=== PATIENT | male | born 1930 | race African-American/Black ===

== ENCOUNTER 2016-11-07 11:26 | Inpatient (IN) | payer MEDICARE ==
[~2016-11-07] VITALS: Ht 165.1 cm; Wt 83.0 kg
--- NOTE | 2016-11-07 11:43 | Emergency Room Report ---
History of Present Illness General Chief Complaint: Dizziness Source: Patient, EMS Present Illness HPI Patient is an 85-year-old male brought in by EMS after increased dizziness. Patient had prior history of dementia. Patient recently been started on Donepezil. The patient reports having prior history of motion sickness. Patient states that he didn't come had dizzy. He had generalized body aches and nausea. This had occured multiple times in the past per patient. Allergies: Coded Allergies: PENICILLINS (Unverified Allergy, Unknown, 11/07/16) Patient History Past Medical History: see triage record Reviewed Nursing Documentation: PMH: Agreed, PSxH: Agreed Nursing Documentation-PMH Past Medical History: No History, Except For Hx Cancer: Yes - History of Colon Ca History Of Psychiatric Problem: Yes - Dementia Review of Systems All Other Systems: negative except mentioned in HPI Physical Exam Vital Signs Date Time Temp Pulse Resp B/P Pulse Ox O2 Delivery O2 Flow Rate FiO2 11/07/16 11:20 97.9 78 18 165/98 98 Room Air Sp02 EP Interpretation: reviewed, normal General Appearance: normal inspection, well appearing, no apparent distress, alert, GCS 15 Head: atraumatic ENT: normal ENT inspection, hearing grossly normal, normal voice Neck: normal inspection, full range of motion, supple, no bony tend Respiratory: normal inspection, lungs clear, normal breath sounds, no respiratory distress, no retraction, no wheezing Cardiovascular #1: regular rate, rhythm, no edema Gastrointestinal: normal inspection, normal bowel sounds, non tender, soft, no guarding, no hernia Genitourinary: no CVA tenderness Musculoskeletal: normal inspection, back normal, normal range of motion Neurologic: normal inspection, alert, oriented x3, responsive, shopper insights manager III-XII nml as tested, speech normal Psychiatric: normal inspection, judgement/insight normal, mood/affect normal Skin: normal inspection, normal color, no rash Medical Decision Making Diagnostic Impression: Primary Impression: Dizziness Additional Impressions: Urinary tract infection Leukopenia ER Course Patient presented for dizziness. Differential diagnosis included was not limited to CVA, vertebrobasilar insufficiency, myocardial infarction, benign positional vertigo, labyrinthitis, aspirin overdose among others. Patient was given oral meclizine. Because of complexity of patient's case laboratory testing and imaging studies were ordered.The patient was noted to have a slightly low white blood count. A urinalysis showed evidence of a urinary tract infection. Patient was noted to have some prior history of prostatic disease.The patient was given antibiotics. Patient was noted to have mildly elevated potassium level. I EKG showed normal sinus rhythm with a rate of 71 no acute changes consistent with hyperkalemia. Dr. Lucas was contacted for inpatient management Labs Test 11/07/16 11:53 11/07/16 12:41 White Blood Count 3.2 K/UL (4.8-10.8) Red Blood Count 4.99 M/UL (4.70-6.10) Hemoglobin 15.6 G/DL (14.2-18.0) Hematocrit 47.1 % (42.0-52.0) Mean Corpuscular Volume 94 FL (80-99) Mean Corpuscular Hemoglobin 31.3 PG (27.0-31.0) Mean Corpuscular Hemoglobin Concent 33.1 G/DL (32.0-36.0) Red Cell Distribution Width 12.8 % (11.6-14.8) Platelet Count 203 K/UL (150-450) Mean Platelet Volume 8.1 FL (6.5-10.1) Neutrophils (%) (Auto) % (45.0-75.0) Lymphocytes (%) (Auto) % (20.0-45.0) Monocytes (%) (Auto) % (1.0-10.0) Eosinophils (%) (Auto) % (0.0-3.0) Basophils (%) (Auto) % (0.0-2.0) Troponin I < 0.30 ng/mL (<=0.30) Urine Color Pale yellow Urine Appearance Clear Urine pH 7 (4.5-8.0) Urine Specific [place] 1.015 (1.005-1.035) Urine Protein 1+ (NEGATIVE) Urine Glucose (UA) Negative (NEGATIVE) Urine Ketones 2+ (NEGATIVE) Urine Occult Blood 1+ (NEGATIVE) Urine Nitrite Negative (NEGATIVE) Urine Bilirubin Negative (NEGATIVE) Urine Urobilinogen Normal MG/DL (0.0-1.0) Urine Leukocyte Esterase 1+ (NEGATIVE) Urine RBC 2-4 /HPF (0 - 0) Urine WBC 10-15 /HPF (0 - 0) Urine Squamous Epithelial Cells Occasional /LPF Urine Bacteria Few /HPF (NONE) EKG Diagnostic Results Rate: normal - 71 Rhythm: NSR ST Segments: no acute changes Last Vital Signs Date Time Temp Pulse Resp B/P Pulse Ox O2 Delivery O2 Flow Rate FiO2 11/07/16 11:20 97.9 78 18 165/98 98 Room Air Status: unchanged Disposition: ADMITTED INPATIENT Condition: Serious Referrals: NOT CHOSEN IPA/,REFERRING (PCP) Amando Powell November 07, 2016 11:43
[2016-11-07] MEDS ORDERED: Meclizine 25mg tab ORAL ONE (11:45)
[2016-11-07 12:20] LABS: MEAN CORPUSCULAR HEMOGLOBIN 31.3 PG (27.0-31.0); MEAN CORPUSCULAR HGB CONC 33.1 G/DL (32.0-36.0); MEAN CORPUSCULAR VOLUME 94 FL (80-99); MEAN PLATELET VOLUME 8.1 FL (6.5-10.1); PLATELET COUNT 203 K/UL (150-450); RED BLOOD COUNT 4.99 M/UL (4.70-6.10); RED CELL DISTRIBUTION WIDTH 12.8 % (11.6-14.8); WHITE BLOOD COUNT 3.2 K/UL (4.8-10.8)
[2016-11-07 12:34] VITALS: BP 162/75
[2016-11-07 12:48] LABS: TROPONIN I < 0.30 ng/mL (<=0.30)
[2016-11-07 13:01] LABS: APPEARANCE,URINE CLEAR; KETONES,URINE 2+ (NEGATIVE); LEUKOCYTE ESTERASE ,URINE 1+ (NEGATIVE); NITRITE,URINE NEGATIVE (NEGATIVE); PH,URINE 7 (4.5-8.0); PROTEIN,URINE 1+ (NEGATIVE); UROBILINOGEN,URINE NORMAL MG/DL (0.0-1.0)
[2016-11-07 13:11] LABS: BACTERIA,URINE FEW /HPF; SQUAMOUS EPITHELIAL CELL,UR OCCASIONAL /LPF (NONE/OCC)
[2016-11-07 13:23] LABS: ALANINE AMINOTRANSFERASE 21 U/L (3-41); ALBUMIN/GLOBULIN RATIO 1.6 (1.0-2.7); ANION GAP 14 (5-15); ASPARTATE AMINO TRANSFERASE 18 U/L (5-40); CALCIUM 10.3 mg/dL (8.6-10.2); CARBON DIOXIDE 28 mEQ/L (20-30); CHLORIDE 96 mEQ/L (98-107); HEMOLYSIS 5; SODIUM 138 mEQ/L (135-145); TOTAL PROTEIN 6.9 g/dL (6.6-8.7)
[2016-11-07] MEDS ORDERED: LEXAPRO10 MG ORAL (13:24)
[2016-11-07] MEDS ORDERED: DONEPEZIL HCL5 MG ORAL (13:24)
[2016-11-07 13:43] LABS: EOSINOPHILS % (MANUAL) 2 % (0-3); LYMPHOCYTES % (MANUAL) 18 % (20-45); NEUTROPHILS % (MANUAL) 69 % (45-75); TOTAL CELLS COUNTED 100
[2016-11-07 13:44] LABS: BAND NEUTROPHILS % (MANUAL) 0 % (0-8); BASOPHILS % (MANUAL) 0 % (0-2); PLATELET ESTIMATE ADEQUATE; PLATELET MORPHOLOGY NORMAL
[2016-11-07 14:58] VITALS: BP 165/78
[2016-11-07 16:03] VITALS: BP 171/89
[2016-11-07] MEDS ORDERED: Acetaminophen 500mg (ES) tab ORAL PRN (16:30)
[2016-11-07 17:00] VITALS: BP 152/88
[2016-11-07 20:00] VITALS: BP 154/82
[2016-11-07] MEDS: Heparin 5000 units/ml inj SUBQ SCH (20:33)
[2016-11-08] VITALS (7 sets, daily range): BP systolic 119–174; BP diastolic 62–93
[2016-11-08 06:16] LABS: MEAN CORPUSCULAR HGB CONC 32.9 G/DL (32.0-36.0); MEAN CORPUSCULAR VOLUME 94 FL (80-99); MEAN PLATELET VOLUME 8.5 FL (6.5-10.1); PLATELET COUNT 189 K/UL (150-450); RED BLOOD COUNT 4.51 M/UL (4.70-6.10); RED CELL DISTRIBUTION WIDTH 12.6 % (11.6-14.8); WHITE BLOOD COUNT 3.4 K/UL (4.8-10.8)
[2016-11-08 06:31] LABS: ANION GAP 13 (5-15); CALCIUM 9.5 mg/dL (8.6-10.2); CARBON DIOXIDE 26 mEQ/L (20-30); CHLORIDE 98 mEQ/L (98-107); HEMOLYSIS 2; POTASSIUM 4.5 mEQ/L (3.4-4.9); SODIUM 137 mEQ/L (135-145)
[2016-11-08] MEDS: Heparin 5000 units/ml inj SUBQ SCH ×2 (09:18→20:39)
--- NOTE | 2016-11-08 12:30 | History and Physical Report ---
DATE OF ADMISSION: 11/07/2016 CHIEF COMPLAINT: Dizziness. HISTORY OF PRESENTING ILLNESS: This is an 85-year-old male who lives with a grandson in an apartment. He was brought in by the paramedics after complaints of dizziness. The patient has history of advanced dementia. He is a very poor historian. The patient cannot be more specific. PAST MEDICAL HISTORY: Dementia. MEDICATIONS: Aricept, Lexapro, . MEDICAL PROBLEMS: Hypertension. ALLERGIES: No known drug allergies. FAMILY HISTORY: The patient is confused. SOCIAL HISTORY: The patient is confused. REVIEW OF SYSTEMS: The patient is confused. PHYSICAL EXAMINATION: GENERAL: This is an elderly man, who is in no acute distress. VITAL SIGNS: His blood pressure is fluctuating between 171/89 to 133/80, heart rate fluctuating between 60 and 90, respirations 23, and temperature 98.8. HEENT: The head is normocephalic and atraumatic. Pupils are equal, round, and reactive to light and accommodation consensually. NECK: Supple. Trachea midline. There was no lymphadenopathy or thyromegaly. LUNGS: Clear to auscultation and percussion. HEART: Regular rhythm without rubs, murmurs, or gallops. ABDOMEN: Soft. Bowel sounds are active. EXTREMITIES: No clubbing, cyanosis, or edema. NEUROLOGIC: He is alert, but confused. There are no gross focal findings. LABORATORY AND ANCILLARY DATA: CBC within normal limits. Serum chemistry within normal limits. Urinalysis, 10-15 white blood cells, otherwise within normal limits. Urine culture results pending. ASSESSMENT: Dizziness, nonspecific. PLAN: 1. Neurology consult. 2. Physical therapy evaluation. 3. Consider placement if the patient's grandson cannot handle the patient. Carolyn Miguel M.D. DR: Amy JOB#: [id number] CC:
--- NOTE | 2016-11-08 13:52 | Neurology Progress Note ---
Objective Physical Exam Last Vital Signs Date Time Temp Pulse Resp B/P Pulse Ox O2 Delivery O2 Flow Rate FiO2 11/08/16 12:28 97.7 71 21 119/62 99 Room Air Laboratory Tests Test 11/08/16 05:45 White Blood Count 3.4 K/UL (4.8-10.8) L Red Blood Count 4.51 M/UL (4.70-6.10) L Hemoglobin 14.0 G/DL (14.2-18.0) L Hematocrit 42.4 % (42.0-52.0) Mean Corpuscular Volume 94 FL (80-99) Mean Corpuscular Hemoglobin 31.0 PG (27.0-31.0) Mean Corpuscular Hemoglobin Concent 32.9 G/DL (32.0-36.0) Red Cell Distribution Width 12.6 % (11.6-14.8) Platelet Count 189 K/UL (150-450) Mean Platelet Volume 8.5 FL (6.5-10.1) Neutrophils (%) (Auto) % (45.0-75.0) Lymphocytes (%) (Auto) % (20.0-45.0) Monocytes (%) (Auto) % (1.0-10.0) Eosinophils (%) (Auto) % (0.0-3.0) Basophils (%) (Auto) % (0.0-2.0) Sodium Level 137 mEQ/L (135-145) Potassium Level 4.5 mEQ/L (3.4-4.9) Chloride Level 98 mEQ/L (98-107) Carbon Dioxide Level 26 mEQ/L (20-30) Anion Gap 13 (5-15) Blood Urea Nitrogen 12 mg/dL (7-23) Creatinine 1.0 mg/dL (0.7-1.2) Estimat Glomerular Filtration Rate mL/min (>60) Glucose Level 88 mg/dL (74-106) Calcium Level 9.5 mg/dL (8.6-10.2) Impression/Recommendations Problems: (1) chronic labirintitis, exacerbation (2) Dementia arising in the senium and presenium (3) UTI (urinary tract infection) Status: unchanged Recommendations #[id number] FABY CAMERON November 08, 2016 13:52
[2016-11-08] MEDS ORDERED: Meclizine 25mg tab ORAL PRN (14:15)
--- NOTE | 2016-11-08 17:30 | Consultation ---
DATE OF CONSULTATION: 11/08/2016 NEUROLOGICAL CONSULTATION REQUESTING PHYSICIAN: Carolyn Bhatia M.D. HISTORY OF PRESENT ILLNESS: The patient is an 85-year-old man who is seen in neurological consultation to evaluate recurrent dizzy spells, tinnitus, and gait instability. According to the patient as well as from his brother who was present during this examination, known that for some time he has some hearing loss, tinnitus in his ears, which interfere with his sleep, but also has a chronic intermittent episodes of vertigo. He had some more pronounced symptomatology lately and family become concerned of the cause of this condition. The patient also indicated he had a fight with his , as he was refusing to the hospital. The patient was brought to the hospital. Paramedics were called to the scene, as the patient was complaining being sick and dizzy, but denies any other associated symptomatology. His vital signs were stable, although blood pressure was 150/100, heart rate of 88 and respirations 18. He was brought to emergency room complaining of generalized body aches and nausea. His initial workup included laboratory studies with normal CBC. Chemistry panel unremarkable except potassium 5.0, chloride 96, and calcium 10.3, and repeat study was 9.5. Urinalysis 10-15 WBCs and 1+ leukocyte esterase. Since admission till present, there were no further paroxysmal activities, as the patient was described as confused. PAST MEDICAL HISTORY: The patient has a history of prostate CA and colon CA and history of Alzheimer disease last few years ago progressively worsened. MEDICATIONS: His treatment include Aricept 5 mg daily and Lexapro 10 mg daily. Currently, he is maintained on amlodipine, Tylenol and subcutaneous heparin. ALLERGIES: Penicillin. SOCIAL HISTORY: Lives at home with his and family members. No alcohol. No drug abuse. Nonsmoker. REVIEW OF SYMPTOMS: The patient's 14-point review of symptoms was obtained and this included intermittent vertigo, dizziness, gait instability, tinnitus, hearing loss, generalized aches and pains, but no chest pain. No palpitations. No respiratory problems. Denies abdominal pain or discomfort. No urine or bowel incontinence. Denies headaches. PHYSICAL EXAMINATION: GENERAL: The patient is well developed and well nourished, elderly man in acute distress, sitting in a chair, talking to his brother. VITAL SIGNS: His vital signs now stable. Blood pressure is stable with blood pressure of 119/62 and temperature 97.7 degrees. HEENT: Head, normocephalic. No evidence of trauma. Eyes, ears, and throat are clear. NECK: Supple. No meningeal signs. MUSCULOSKELETAL: Unremarkable. No deformities. Peripheral pulses 1+ symmetric. MENTAL STATUS: The patient is alert and oriented to his name and age. He was hesitating, but he was able to give his address. He is unable to provide with any history. He is not sure why he is in the hospital. Responses are slow. CRANIAL NERVE II: Pupils, both responding to light and accommodation. Extraocular movement intact. No nystagmus. CRANIAL NERVE V: Normal corneal responses. CRANIAL NERVE VII: No facial asymmetry. CRANIAL NERVE VIII: Decreased hearing. No evidence of vertigo with head movement. CRANIAL NERVES IX THROUGH XII: Within normal limits. MOTOR EXAMINATION: Normal muscle tone. Strength 5/5 in all extremities. No involuntary movement. Deep reflexes 1+ symmetric with downgoing toes on both sides. SENSORY EXAM: Normal in all modalities. Gait, somewhat wobbly, unsteady, using cane. IMPRESSION: 1. Chronic labyrinthitis with recurrent vertigo. 2. Tinnitus, hearing loss. 3. Senile dementia. 4. History of colon and prostate carcinoma. 5. Benign hypertension. RECOMMENDATION: Because of intermittent vertigo, hearing loss and tinnitus not clear, studies MRI of the inner auditory canals would be helpful to rule out gross lesion. The patient to start on aspirin 81 mg, meclizine 12.5 mg t.i.d. p.r.n. Continue with the current treatment. Thank you for allowing me to see this interesting patient in neurological consultation. Benajmin Coffman M.D. DR: ZURDO JOB#: [id number] CC:
[2016-11-08] MEDS ORDERED: 1/2 NS 1000ml IV ONE (17:40)
--- NOTE | 2016-11-08 19:15 | Consultation ---
DATE OF CONSULTATION: 11/08/2016 CONSULTING PHYSICIAN: Marquis Hernandez M.D. HISTORY OF PRESENT ILLNESS: This is an 85-year-old male who has a history of advanced dementia, who is living with the family, has a history of multiple UTIs in the past, who has been admitted to the hospital due to altered mental status. During evaluation, the patient was unable to provide any history due to cognitive impairment. He presents with waxing and waning of consciousness. The patient has memory, concentration, and attention. PAST PSYCHIATRIC HISTORY: Diagnosed with depression in the past as well as dementia, has been on Lexapro and Aricept. Currently, he is not on Lexapro in the hospital. PAST MEDICAL HISTORY: Hypertension. ALLERGIES: No known drug allergies. SUBSTANCE ABUSE HISTORY: No history of illicit drug use or alcohol. MENTAL STATUS EXAMINATION: The patient is alert during evaluation. Presents with waxing and waning consciousness. Mood is dysphoric. Affect is blunted, congruent with mood. Thought process, there is a paucity of thought content due to confusion. Memory is impaired. Insight and judgment impaired. ASSESSMENT: AXIS I: 1. Dementia. 2. Major depressive disorder. AXIS II: Deferred. AXIS III: As above. AXIS IV: Low. AXIS V: Global assessment of functioning is 20. PLAN: 1. We will start the patient on Lexapro 10 mg in the morning. 2. We will continue to follow and readjust the medications. Marquis Hernandez M.D. DR: LOIS JOB#: [id number] CC:
[2016-11-09] VITALS (7 sets, daily range): BP systolic 128–164; BP diastolic 72–92
--- NOTE | 2016-11-09 07:53 | Cardiology Report ---
APPROVED REPORT EKG Measurement Heart [id number] Sinus rhythm with sinus arrhythmia with 1st degree AV block Incomplete right bundle branch block Left anterior fascicular block Possible Lateral infarct, age undetermined Abnormal ECG
[2016-11-09] MEDS: Heparin 5000 units/ml inj SUBQ SCH ×2 (08:16→21:00)
--- NOTE | 2016-11-09 10:05 | General Progress Note ---
Assessment/Plan Assessment/Plan U C+S Strep Sp. Strep UTI - IV Abx Subjective Allergies: Coded Allergies: PENICILLINS (Unverified Allergy, Unknown, 11/07/16) Subjective More confused Objective Last 24 Hour Vital Signs Date Time Temp Pulse Resp B/P Pulse Ox O2 Delivery O2 Flow Rate FiO2 11/09/16 08:14 61 164/91 11/09/16 08:13 96.8 61 20 164/91 94 Room Air 11/09/16 08:00 96.8 61 20 164/91 94 Room Air 11/09/16 04:00 97.9 67 18 150/91 95 Room Air 11/08/16 23:48 98.4 64 19 159/88 97 Room Air 11/08/16 19:52 98.1 70 19 139/93 96 Room Air 11/08/16 16:23 97.7 81 24 137/75 99 Room Air 11/08/16 12:28 97.7 71 21 119/62 99 Room Air Intake and Output 11/08/16 11/09/16 19:00 07:00 Intake Total 960 ml Balance 960 ml Intake Oral 960 ml # Voids 2 1 Height (Feet): 5 Height (Inches): 11.00 Weight (Pounds): 184 Objective CV RR Lungs CTa Abd SNT . BS + E No CCE HOANG PETERSON November 09, 2016 10:05
--- NOTE | 2016-11-09 10:14 | General Progress Note ---
Assessment/Plan Assessment/Plan U C+S Strep Sp. Strep UTI - IV Abx Recurrent UTI ? etiology check renal US. Subjective Allergies: Coded Allergies: PENICILLINS (Unverified Allergy, Unknown, 11/07/16) Subjective More confused. Stating he had another UTI a week ago and was treated. Objective Last 24 Hour Vital Signs Date Time Temp Pulse Resp B/P Pulse Ox O2 Delivery O2 Flow Rate FiO2 11/09/16 08:14 61 164/91 11/09/16 08:13 96.8 61 20 164/91 94 Room Air 11/09/16 08:00 96.8 61 20 164/91 94 Room Air 11/09/16 04:00 97.9 67 18 150/91 95 Room Air 11/08/16 23:48 98.4 64 19 159/88 97 Room Air 11/08/16 19:52 98.1 70 19 139/93 96 Room Air 11/08/16 16:23 97.7 81 24 137/75 99 Room Air 11/08/16 12:28 97.7 71 21 119/62 99 Room Air Intake and Output 11/08/16 11/09/16 19:00 07:00 Intake Total 960 ml Balance 960 ml Intake Oral 960 ml # Voids 2 1 Height (Feet): 5 Height (Inches): 11.00 Weight (Pounds): 184 Objective CV RR Lungs CTa Abd SNT . BS + E No CCE HOANG PETERSON November 09, 2016 10:14
[2016-11-09] MEDS: Levofloxacin 500mg tab ORAL SCH (10:39)
[2016-11-09] MEDS ORDERED: LORazepam Inj 2mg/ml 1ml IV PRN (12:00)
--- NOTE | 2016-11-09 12:33 | Diagnostic Imaging Report ---
APPROVED REPORT CPT Code: 69129 Present Symptoms Lower Extremity Pain: Bilateral BILATERAL: Imaging reveals a patent deep venous system bilaterally. There is no evidence of thrombus within the femoral, popliteal or tibial segments. The greater saphenous veins are also within normal limits. Doppler indicates normal spontaneous flow within these segments.
--- NOTE | 2016-11-09 13:39 | Neurology Progress Note ---
Interim History Interim History ROS Limited/Unobtainable: Yes Complaints: vertigo for years Events: stable Objective Physical Exam Last Vital Signs Date Time Temp Pulse Resp B/P Pulse Ox O2 Delivery O2 Flow Rate FiO2 11/09/16 12:00 98.8 65 20 128/72 97 Room Air General: well developed, well nourished, no acute distress Head: normocophalic, atraumatic Neck: no rigidity Neurologic Exam Mental Status: awake, alert, other - confused forgtful Speech: normal speech, no dysarthia Language: normal language, no aphasia Cranial Nerve II: fundus normal, visual kraft, no papilledema Cranial Nerves III, IV, : PERRLA, EOMI, pupils Cranial Nerve V: normal facial sensations, temporales function normal, masseters function normal, pterygoids function normal Cranial Nerve VII: no facial asymmetry, normal facial expressions Cranial Nerve VIII: normal hearing, no nystagmus, other - poor hearing Cranial Nerve IX: normal palate elevation, gag response Cranial Nerve X: no voice hoarseness Cranial Nerve XI: SCM symmetric, trapezii function normal Cranial Nerve XII: tongue midline, no tongue atrophy/fasciculations Motor System: normal muscle tone, no involuntary movement Sensory: normal pinprick Coordination: normal finger to nose bilaterally Deep Tendon Reflexes: 0 ankle (L), 0 ankle (R), 0 bicep (L), 0 bicep (R), 0 brachioradialis (L), 0 brachioradialis (R), 0 knee (L), 0 knee (R), 0 tricep (L) , 0 tricep (R) Reflexes: mute plantar (L), mute plantar (R) Impression/Recommendations Problems: (1) chronic labirintitis, exacerbation (2) Dementia arising in the senium and presenium (3) UTI (urinary tract infection) Status: stable, unchanged Recommendations #[id number] refused MRI IAC trial janice 12.5 FABY Kaufman November 09, 2016 13:39
--- NOTE | 2016-11-09 14:15 | Diagnostic Imaging Report ---
Indication: Abnormal renal function tests Technique: Grayscale and duplex images of the kidneys, retroperitoneum, and bladder were obtained. Comparison:None Findings: Right kidney measures 9.7 cm in length. Left kidney measures 9.1 cm in length. Both kidneys demonstrate normal echogenicity. No hydronephrosis. Left kidney demonstrates a 1 cm upper pole cyst. Normal inferior vena cava. Bladder is empty. Bladder wall is equivocally thickened. Calcification is seen within the spleen. Between the left kidney and the spleen, there is a 1.5 cm hypoechoic structure that demonstrates distal acoustic enhancement Impression: Negative for hydronephrosis 1.5 cm complex possibly cystic structure between left kidney and the spleen. Further evaluation with contrast CT recommended if clinically indicated Nondistended bladder. Possible bladder wall thickening, could be an artifact of under distention, but wall thickening secondary to cystitis or chronic outlet obstruction not excludable Calcifications within the spleen, probably old granulomatous disease Incidental finding of left renal cyst.
[2016-11-10] VITALS (7 sets, daily range): BP systolic 128–142; BP diastolic 78–98
[2016-11-10 06:23] LABS: EOSINOPHILS % (AUTO) 3.2 % (0.0-3.0); LYMPHOCYTES % (AUTO) 27.9 % (20.0-45.0); MEAN CORPUSCULAR HEMOGLOBIN 31.2 PG (27.0-31.0); MEAN CORPUSCULAR HGB CONC 33.3 G/DL (32.0-36.0); MEAN CORPUSCULAR VOLUME 94 FL (80-99); MEAN PLATELET VOLUME 8.6 FL (6.5-10.1); MONOCYTES % (AUTO) 13.2 % (1.0-10.0); NEUTROPHILS % (AUTO) 53.7 % (45.0-75.0); PLATELET COUNT 203 K/UL (150-450); RED BLOOD COUNT 4.71 M/UL (4.70-6.10); RED CELL DISTRIBUTION WIDTH 12.9 % (11.6-14.8); WHITE BLOOD COUNT 3.5 K/UL (4.8-10.8)
[2016-11-10 08:37] LABS: ANION GAP 16 (5-15); CALCIUM 9.6 mg/dL (8.6-10.2); CARBON DIOXIDE 23 mEQ/L (20-30); CHLORIDE 99 mEQ/L (98-107); HEMOLYSIS 9; POTASSIUM 4.4 mEQ/L (3.4-4.9); SODIUM 138 mEQ/L (135-145)
[2016-11-10 08:44] LABS: PSA TOTAL 0.8 ng/mL (< 4.5)
[2016-11-10] MEDS: Levofloxacin 500mg tab ORAL SCH (08:55)
[2016-11-10] MEDS: Heparin 5000 units/ml inj SUBQ SCH ×2 (09:00→20:35)
--- NOTE | 2016-11-10 10:53 | General Progress Note ---
Assessment/Plan Assessment/Plan U c+s Enterococci (R/O VRE!!!!) R/O VRE Pyelo !!! Recurrent UTI ? Renal US "Complex Cyst" may represent CA. MRI ordered. May be the reason for recurrent (and possible VRE pyelonephritis ) with AMS! ID Consult requested. Subjective Allergies: Coded Allergies: PENICILLINS (Unverified Allergy, Unknown, 11/07/16) Subjective Confused. Stating he had another UTI a week ago and was treated. Objective Last 24 Hour Vital Signs Date Time Temp Pulse Resp B/P Pulse Ox O2 Delivery O2 Flow Rate FiO2 11/10/16 08:55 78 142/98 11/10/16 08:04 98.1 78 21 142/98 99 Room Air 11/10/16 04:00 98.1 86 20 142/79 97 Room Air 11/10/16 00:00 97.7 80 20 142/86 97 Room Air 11/09/16 20:00 98.8 71 20 152/92 93 Room Air 11/09/16 16:00 98.2 68 20 149/89 97 Room Air 11/09/16 12:00 98.8 65 20 128/72 97 Room Air Intake and Output 11/09/16 11/10/16 19:00 07:00 Intake Total 200 ml Balance 200 ml Intake Oral 200 ml # Voids 4 2 Laboratory Tests 11/10/16 05:30: White Blood Count 3.5L, Red Blood Count 4.71, Hemoglobin 14.7, Hematocrit 44.2, Mean Corpuscular Volume 94, Mean Corpuscular Hemoglobin 31.2H, Mean Corpuscular Hemoglobin Concent 33.3, Red Cell Distribution Width 12.9, Platelet Count 203, Mean Platelet Volume 8.6, Neutrophils (%) (Auto) 53.7, Lymphocytes (%) (Auto) 27.9, Monocytes (%) (Auto) 13.2H, Eosinophils (%) (Auto) 3.2H, Basophils (%) ( Auto) 2.0, Sodium Level 138, Potassium Level 4.4, Chloride Level 99, Carbon Dioxide Level 23, Anion Gap 16H, Blood Urea Nitrogen 13, Creatinine 1.0, Estimat Glomerular Filtration Rate , Glucose Level 98, Calcium Level 9.6, Magnesium Level 2.0, Prostate Specific Antigen 0.8 Height (Feet): 5 Height (Inches): 11.00 Weight (Pounds): 184 Objective CV RR Lungs CTa Abd SNT . BS + E No CCE HOANG PETERSON November 10, 2016 10:53
--- NOTE | 2016-11-10 11:42 | Infectious Diseases Prog Note ---
Assessment/Plan Assessment/Plan Full consult to follow: A) 1) enterococcus uti, sensitive to vancomycin 2) allergies - pcn 3) pmh noted 4) mar noted P) 1) vancomycin 2) watch cr 3) continue other treatment per primary 4) thank you Subjective Allergies: Coded Allergies: PENICILLINS (Unverified Allergy, Unknown, 11/07/16) Objective Vital Signs Last 24 Hour Vital Signs Date Time Temp Pulse Resp B/P Pulse Ox O2 Delivery O2 Flow Rate FiO2 11/10/16 11:35 97.7 91 22 135/87 96 Room Air 11/10/16 08:55 78 142/98 11/10/16 08:04 98.1 78 21 142/98 99 Room Air 11/10/16 04:00 98.1 86 20 142/79 97 Room Air 11/10/16 00:00 97.7 80 20 142/86 97 Room Air 11/09/16 20:00 98.8 71 20 152/92 93 Room Air 11/09/16 16:00 98.2 68 20 149/89 97 Room Air 11/09/16 12:00 98.8 65 20 128/72 97 Room Air Height (Feet): 5 Height (Inches): 11.00 Weight (Pounds): 184 Microbiology Date/Time Source Procedure Growth Status 11/07/16 12:41 Urine,Clean Catch Urine Culture - Final Enterococcus Faecalis Complete Laboratory Tests Test 11/10/16 05:30 White Blood Count 3.5 K/UL (4.8-10.8) L Red Blood Count 4.71 M/UL (4.70-6.10) Hemoglobin 14.7 G/DL (14.2-18.0) Hematocrit 44.2 % (42.0-52.0) Mean Corpuscular Volume 94 FL (80-99) Mean Corpuscular Hemoglobin 31.2 PG (27.0-31.0) H Mean Corpuscular Hemoglobin Concent 33.3 G/DL (32.0-36.0) Red Cell Distribution Width 12.9 % (11.6-14.8) Platelet Count 203 K/UL (150-450) Mean Platelet Volume 8.6 FL (6.5-10.1) Neutrophils (%) (Auto) 53.7 % (45.0-75.0) Lymphocytes (%) (Auto) 27.9 % (20.0-45.0) Monocytes (%) (Auto) 13.2 % (1.0-10.0) H Eosinophils (%) (Auto) 3.2 % (0.0-3.0) H Basophils (%) (Auto) 2.0 % (0.0-2.0) Sodium Level 138 mEQ/L (135-145) Potassium Level 4.4 mEQ/L (3.4-4.9) Chloride Level 99 mEQ/L (98-107) Carbon Dioxide Level 23 mEQ/L (20-30) Anion Gap 16 (5-15) H Blood Urea Nitrogen 13 mg/dL (7-23) Creatinine 1.0 mg/dL (0.7-1.2) Estimat Glomerular Filtration Rate mL/min (>60) Glucose Level 98 mg/dL (74-106) Calcium Level 9.6 mg/dL (8.6-10.2) Magnesium Level 2.0 mg/dL (1.7-2.5) Prostate Specific Antigen 0.8 ng/mL (< 4.5) Current Medications Medications (Trade) Dose Ordered Sig/Alan Route PRN Reason Start Time Stop Time Status Last Admin Dose Admin Acetaminophen (Tylenol) 500 mg Q6H PRN ORAL Mild Pain/Temp > 100.5 11/07/16 16:30 12/07/16 16:29 11/07/16 23:17 Amlodipine Besylate (Norvasc) 10 mg DAILY ORAL 11/10/16 09:00 12/10/16 08:59 11/10/16 08:55 Escitalopram Oxalate (Lexapro) 10 mg DAILY ORAL 11/09/16 09:00 12/09/16 08:59 11/10/16 08:55 Heparin Sodium (Porcine) (Heparin 5000 units/ml) 5,000 units EVERY 12 HOURS SUBQ 11/07/16 21:00 12/07/16 20:59 11/10/16 09:00 Levofloxacin (Levaquin) 500 mg DAILY ORAL 11/09/16 10:15 11/16/16 10:14 11/10/16 08:55 DOLLY ADAM November 10, 2016 11:42
[2016-11-10] MEDS: Vancomycin 1.5 GM in D5W 325 ML IVPB SCH (15:06)
--- NOTE | 2016-11-10 22:15 | Progress Note ---
SUBJECTIVE: The patient is somewhat confused, however, the mental status is improving since previous encounter. He is awake. No anxiety or agitation. Still endorses mild waxing and waning consciousness and impairment of cognition. MENTAL STATUS EXAMINATION: The patient alert and oriented times self and is having difficulty with memory. Mood is neutral. Affect is constricted, congruent with mood. Thought process, there is a paucity of thought content. Thought content, no suicidal or homicidal ideations. No delusions. Cognition is impaired. ASSESSMENT: 1. Urinary tract infection. 2. Delirium, improving. 3. Dementia. PLAN: The patient will be continued on Lexapro 10 mg in the morning before he came in. We will continue follow and readjust the medications. Marquis Hernandez M.D. DR: GAIL JOB#: [id number] CC:
[2016-11-11 04:00] VITALS: BP 141/97
[2016-11-11 05:42] LABS: BASOPHILS % (AUTO) 2.3 % (0.0-2.0); MEAN CORPUSCULAR HEMOGLOBIN 31.4 PG (27.0-31.0); MEAN CORPUSCULAR HGB CONC 33.2 G/DL (32.0-36.0); MEAN CORPUSCULAR VOLUME 95 FL (80-99); MEAN PLATELET VOLUME 8.4 FL (6.5-10.1); MONOCYTES % (AUTO) 10.5 % (1.0-10.0); NEUTROPHILS % (AUTO) 65.2 % (45.0-75.0); PLATELET COUNT 185 K/UL (150-450); RED BLOOD COUNT 4.63 M/UL (4.70-6.10); WHITE BLOOD COUNT 4.4 K/UL (4.8-10.8)
[2016-11-11 06:17] LABS: ANION GAP 14 (5-15); CALCIUM 9.7 mg/dL (8.6-10.2); CARBON DIOXIDE 24 mEQ/L (20-30); CHLORIDE 98 mEQ/L (98-107); HEMOLYSIS 2; POTASSIUM 4.2 mEQ/L (3.4-4.9); SODIUM 136 mEQ/L (135-145)
[2016-11-11 08:19] VITALS: BP 135/69
[2016-11-11] MEDS: Heparin 5000 units/ml inj SUBQ SCH ×2 (09:15→20:51)
--- NOTE | 2016-11-11 10:21 | General Progress Note ---
Assessment/Plan Assessment/Plan U c+s Enterococci (R/O VRE!!!!) R/O VRE Pyelo !!! Recurrent UTI ? Renal US "Complex Cyst" may represent CA. MRI ordered. May be the reason for recurrent (and possible VRE pyelonephritis ) with AMS! ID Consult requested. DW pt's . Pt. accepted @ [facility] Dr[facility]. Awaiting CT Scan of Abdomen with Contrast. Subjective Allergies: Coded Allergies: PENICILLINS (Unverified Allergy, Unknown, 11/07/16) Subjective Confused. Stating he had another UTI a week ago and was treated. Objective Last 24 Hour Vital Signs Date Time Temp Pulse Resp B/P Pulse Ox O2 Delivery O2 Flow Rate FiO2 11/11/16 09:00 65 135/69 11/11/16 08:19 97.0 65 15 135/69 97 Room Air 11/11/16 04:00 97.6 64 18 141/97 97 Room Air 11/10/16 21:20 98.4 82 19 140/89 96 Room Air 11/10/16 20:00 98.4 82 19 140/89 96 Room Air 11/10/16 15:35 98.2 70 21 128/78 99 Room Air 11/10/16 11:35 97.7 91 22 135/87 96 Room Air Intake and Output 11/10/16 11/11/16 19:00 07:00 Intake Total 720 ml Output Total 600 ml 500 ml Balance 120 ml -500 ml Intake Oral 720 ml Output Urine Total 600 ml 500 ml # Voids 4 2 Laboratory Tests 11/11/16 05:10: White Blood Count 4.4L, Red Blood Count 4.63L, Hemoglobin 14.5, Hematocrit 43.8 , Mean Corpuscular Volume 95, Mean Corpuscular Hemoglobin 31.4H, Mean Corpuscular Hemoglobin Concent 33.2, Red Cell Distribution Width 13.0, Platelet Count 185, Mean Platelet Volume 8.4, Neutrophils (%) (Auto) 65.2, Lymphocytes (% ) (Auto) 20.0, Monocytes (%) (Auto) 10.5H, Eosinophils (%) (Auto) 2.0, Basophils (%) (Auto) 2.3H, Sodium Level 136, Potassium Level 4.2, Chloride Level 98, Carbon Dioxide Level 24, Anion Gap 14, Blood Urea Nitrogen 14, Creatinine 1.0, Estimat Glomerular Filtration Rate , Glucose Level 100, Calcium Level 9.7 Height (Feet): 5 Height (Inches): 11.00 Weight (Pounds): 184 Objective CV RR Lungs CTa Abd SNT . BS + E No CCE HOANG PETERSON Nov 11, 2016 10:21
[2016-11-11 11:44] VITALS: BP 155/67
[2016-11-11] MEDS: Vancomycin 1.5 GM in D5W 325 ML IVPB SCH (14:05)
--- NOTE | 2016-11-11 14:52 | Diagnostic Imaging Report ---
Clinical Indication: Pyelonephritis. Recurrent urinary tract infections. Abnormal perirenal lesion on recent ultrasound Technique: Patient given oral contrast. IV administration nonionic contrast. Multiphasic spiral acquisitions obtained through the abdomen and pelvis. Multiplanar reconstructions were generated. Total dose length product 2529 mGycm. CTDIvol(s) 12, 145, 17, 18, 18 mGy. Dose reduction achieved using automated exposure control Comparison: Reference made to renal ultrasound dated 11/09/2016 Findings: In the upper pole left kidney, there is a calcification which measures 13 x 7 mm. There may be one or more smaller adjacent calcifications. A punctate 2 mm calcification is seen in the lower pole of the left kidney. A calculus is seen in the right upper pole collecting system, filling the calyces and adjacent infundibula, measuring 17 x 10 x 3 mm. No other definite renal calculi are evident. This no evidence of ureteral calculi. The renal collecting systems and ureters are unremarkable. There is small amount of perinephric fluid on the left. There are subcentimeter low-attenuation lesions in the left kidney which are too small to characterize. No solid renal mass. No focal abnormality on the right. There are no findings to suggest a fistula between the GI tract and the urinary tract No mass or nodule or cyst is seen to account for the left juxtarenal nodular abnormality demonstrated on recent ultrasound. A fluid filled colonic diverticulum and the pancreatic tail are seen in the area, so either these could account for the abnormality visualized sonographically. There is a 5 mm soft tissue attenuation lesion located anterolateral to the lower pole of the spleen, likely representing a tiny accessory splenule, but this is farther from the kidney than was the abnormality described on recent ultrasound. On multiple sequences, there is suggestion of a 3 cm mass protruding into the duodenal lumen. There is also a small associated lipoma at the periphery of this. This is contiguous with and may be coming off of the pancreas. There is a large duodenal diverticulum coming off of the fourth portion of the duodenum. The liver demonstrates a subcentimeter low-attenuation lesion in segment 8 adjacent to the gallbladder fossa which is too small to characterize. The gallbladder, bile ducts, are unremarkable. The spleen demonstrates a small calcification in the lower pole. The bilateral adrenals are unremarkable. No mesenteric or retroperitoneal mass or adenopathy. No pelvic mass or adenopathy. Slightly prominent prostate. There is suggestion of a TURP defect. There are numerous colonic diverticula. There is no evidence of diverticulitis. There is evidence of ascending colectomy, with surgical anastomotic staple lines seen at the hepatic flexure. No small bowel distention. Contrast is seen throughout the entirety of the small bowel. No small bowel wall thickening. No free or loculated intraperitoneal air or fluid is demonstrated. The distal esophagus and stomach are unremarkable. The included lung bases demonstrate mild bibasilar scarring and minimal bronchiectasis. The bones demonstrate mild degenerative spondylosis changes. Impression: Multiple sequences demonstrate possible 3 cm mass protruding into the duodenal lumen. This could just represent extrinsic impression by a prominent pancreatic head. However, if real, this could represent an intrinsic duodenal mucosal tumor versus an extrinsic pancreatic head mass. Consider endoscopy for further evaluation if clinically indicated. Note that at the periphery of this apparent lesion, there is a 9 mm lipoma protruding into the duodenal lumen. 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 That finding was either artifactual or represented a normal anatomic structure Trace left perinephric fluid, nonspecific Subcentimeter low-attenuation left renal lesions, too small to characterize, most likely benign simple cortical cysts. No further followup necessary Large duodenal diverticulum incidentally noted Subcentimeter segment 8 liver low-attenuation lesion, distal to characterize, most likely benign simple cortical cyst or bile hamartomas. No further followup necessary Colonic diverticulosis Other findings as noted, including evidence of prior TURP, evidence of prior ascending colectomy, mild bilateral basilar pulmonary parenchymal scarring, minimal bronchiectasis, old splenic granulomatous disease, probable small accessory splenule and mild degenerative spondylosis changes. The CT scanner at [facility] is accredited by the [employer] and the scans are performed using protocols designed to limit radiation exposure to as low as reasonably achievable to attain images of sufficient resolution adequate for diagnostic evaluation.
--- NOTE | 2016-11-11 14:59 | Diagnostic Imaging Report ---
Indication: 85-year-old male inpatient with tinnitus, dizziness, unsteady gait, possible inner ear pathology Technique: Sagittal T1 FLAIR, axial diffusion weighted images of the brain. Axial and coronal thin slice T1 fast spin-echo pre-and post IV gadolinium injection, axial and coronal T2 fast spin echo,, axial 3-D fiesta images of the internal auditory canals Comparison: None Findings: No abnormal foci of restricted diffusion are seen on the diffusion-weighted images. The sagittal T1 weighted images of the brain demonstrate diffuse cerebral volume loss. Somewhat prominent but otherwise unremarkable internal auditory canals are demonstrated. No evidence of cerebellopontine angle mass. No abnormal contrast enhancing lesion. The inner ear structures are grossly unremarkable. As mentioned earlier, there is age-related enlargement of the ventricles and extra-axial CSF spaces. There is nonspecific increased white matter T1 signal within the coco and lower midbrain. There is incidentally noted sphenoid, ethmoid, and maxillary sinus disease. The orbits are unremarkable. No abnormal contrast enhancing lesions seen elsewhere. Impression: No significant abnormality of the internal auditory canal or inner ear demonstrated. There is age-related cerebral volume loss and chronic deep white matter ischemic change. Incidentally noted sinus disease
[2016-11-11 15:03] VITALS: BP 116/57
--- NOTE | 2016-11-11 16:05 | Infectious Diseases Prog Note ---
Assessment/Plan Assessment/Plan Full consult to follow: A) 1) enterococcus uti, sensitive to vancomycin 2) allergies - pcn 3) pmh noted 4) mar noted P) 1) vancomycin 2) watch cr 3) continue other treatment per primary 4) d/w Dr. Bullard Subjective Allergies: Coded Allergies: PENICILLINS (Unverified Allergy, Unknown, 11/07/16) Objective Vital Signs Last 24 Hour Vital Signs Date Time Temp Pulse Resp B/P Pulse Ox O2 Delivery O2 Flow Rate FiO2 11/11/16 15:03 98.1 67 14 116/57 97 Room Air 11/11/16 11:44 97.7 72 16 155/67 97 Room Air 11/11/16 09:00 65 135/69 11/11/16 08:19 97.0 65 15 135/69 97 Room Air 11/11/16 04:00 97.6 64 18 141/97 97 Room Air 11/10/16 21:20 98.4 82 19 140/89 96 Room Air 11/10/16 20:00 98.4 82 19 140/89 96 Room Air Height (Feet): 5 Height (Inches): 11.00 Weight (Pounds): 184 Laboratory Tests Test 11/11/16 05:10 White Blood Count 4.4 K/UL (4.8-10.8) L Red Blood Count 4.63 M/UL (4.70-6.10) L Hemoglobin 14.5 G/DL (14.2-18.0) Hematocrit 43.8 % (42.0-52.0) Mean Corpuscular Volume 95 FL (80-99) Mean Corpuscular Hemoglobin 31.4 PG (27.0-31.0) H Mean Corpuscular Hemoglobin Concent 33.2 G/DL (32.0-36.0) Red Cell Distribution Width 13.0 % (11.6-14.8) Platelet Count 185 K/UL (150-450) Mean Platelet Volume 8.4 FL (6.5-10.1) Neutrophils (%) (Auto) 65.2 % (45.0-75.0) Lymphocytes (%) (Auto) 20.0 % (20.0-45.0) Monocytes (%) (Auto) 10.5 % (1.0-10.0) H Eosinophils (%) (Auto) 2.0 % (0.0-3.0) Basophils (%) (Auto) 2.3 % (0.0-2.0) H Sodium Level 136 mEQ/L (135-145) Potassium Level 4.2 mEQ/L (3.4-4.9) Chloride Level 98 mEQ/L (98-107) Carbon Dioxide Level 24 mEQ/L (20-30) Anion Gap 14 (5-15) Blood Urea Nitrogen 14 mg/dL (7-23) Creatinine 1.0 mg/dL (0.7-1.2) Estimat Glomerular Filtration Rate mL/min (>60) Glucose Level 100 mg/dL (74-106) Calcium Level 9.7 mg/dL (8.6-10.2) Current Medications Medications (Trade) Dose Ordered Sig/Alan Route PRN Reason Start Time Stop Time Status Last Admin Dose Admin Acetaminophen (Tylenol) 500 mg Q6H PRN ORAL Mild Pain/Temp > 100.5 11/07/16 16:30 12/07/16 16:29 11/07/16 23:17 Amlodipine Besylate (Norvasc) 10 mg DAILY ORAL 11/10/16 09:00 12/10/16 08:59 11/10/16 08:55 Escitalopram Oxalate (Lexapro) 10 mg DAILY ORAL 11/09/16 09:00 12/09/16 08:59 11/10/16 08:55 Heparin Sodium (Porcine) (Heparin 5000 units/ml) 5,000 units EVERY 12 HOURS SUBQ 11/07/16 21:00 12/07/16 20:59 11/11/16 09:15 Vancomycin HCl 1 ea 1 ea DAILY PRN MISC Per rx protocol 11/10/16 11:45 12/10/16 11:44 Vancomycin HCl/ Dextrose (Vancomycin/D5W) 325 ml @ 162.5 mls/ hr Q24H IVPB 11/10/16 14:00 11/15/16 13:59 11/11/16 14:05 DOLLY ADAM Nov 11, 2016 16:05
[2016-11-11 20:00] VITALS: BP 154/79
--- NOTE | 2016-11-11 20:45 | Progress Note ---
DATE: 11/11/2016 SUBJECTIVE: The patient was calm today, in no acute distress. However, confused, disoriented, not engaged during the evaluation and compliant. MENTAL STATUS EXAMINATION: The patient is alert, confused, and disoriented. Mood is neutral. Affect is constricted. Congruent with mood. Thought process is concrete. Thought content, no suicidal or homicidal ideation. ASSESSMENT: 1. Delirium. 2. Cognitive impairment. PLAN: The patient will be continued on his current medication. No medication changes. We will continue to monitor his behaviors. Marquis Hernandez M.D. DR: LANNY JOB#: [id number] CC:
[2016-11-12] VITALS (7 sets, daily range): BP systolic 120–140; BP diastolic 74–81
--- NOTE | 2016-11-12 | Consultation ---
DATE OF CONSULTATION: 11/11/2016 INFECTIOUS DISEASES CONSULTATION ATTENDING PHYSICIAN: Carolyn Miguel M.D. REASON FOR CONSULTATION: Enterococcus UTI. The patient's chief complaint coming in the hospital was generalized weakness and UTI. HISTORY OF PRESENT ILLNESS: This is a very pleasant 85-year-old male who comes into [facility] with weakness. The patient was noted to have a significant positive urinalysis, which showed 10-15 white blood cells and 1+ leukocyte esterase. The patient's creatinine was normal. Urine culture grew out greater than 100,000 enterococcus, sensitive to vancomycin. Infectious Disease consultation was requested for antibiotic management. I saw the patient yesterday and started him on vancomycin. Case discussed with Dr. Bhatia. MAR was noted. Orders were noted. Notes were reviewed. Case discussed with RN. PAST MEDICAL HISTORY: The patient has a past medical history of dementia. He came in with dizziness. He has a history of colon cancer and possible hypertension and looks like he has been on donepezil. MEDICATIONS: He is on vancomycin, Norvasc, Lexapro, and Tylenol. He has been on Aricept in the past. He is on donepezil as discussed. Actually, I am not sure he is on Aricept actually. ALLERGIES: Penicillin. SOCIAL HISTORY: Negative for smoking, alcohol or drug abuse. FAMILY HISTORY: Noncontributory. Negative for exposure to tuberculosis or cancer. REVIEW OF SYSTEMS: Constitutional: The patient has generalized fatigue. No fever, chills, night sweats or weight loss. No central line. No [place]. Head And Neck: No head pain or neck pain. Cardiac: No chest pain or palpitations. No pressors. Gastrointestinal: No nausea, vomiting, or diarrhea. Genitourinary: He has some dysuria. No frequency. No CVA tenderness. Pulmonary: No congestion, shortness of breath, or hemoptysis. Skin: No rash or dermatitis. Neurologic: No seizures. PHYSICAL EXAMINATION: GENERAL: The patent is alert, responsive, not in acute distress. He is responsive. VITAL SIGNS: Temperature 98.1 degrees, pulse rate 67, respiratory rate 14, blood pressure 116/57, and saturation 97%. HEAD AND NECK: Oral exam, no thrush. Eye exam, no icterus. Normocephalic. No facial droop. No neck stiffness. Neck is supple. LUNGS: Clear bilaterally. No rhonchi or rales. HEART: Regular. No gallop or murmur. No friction rub. ABDOMEN: Soft. Positive bowel sounds. Nontender. SKIN: No rash or dermatitis. MUSCULOSKELETAL: No effusions or contractures. Lower extremities without cellulitis. PERIPHERAL VASCULAR: No cyanosis or gangrene. RECTAL: Deferred. GENITOURINARY: He has no [place]. LINE: Line site is without phlebitis. NEUROLOGIC: Generalized weakness. Responsive. LABORATORY AND DIAGNOSTIC DATA: Creatinine is 1.0. White count is 4.4 and hemoglobin 14.5. Urinalysis, 1+ leukocyte esterase, 10-15 white blood cells. Urine culture grew greater than 100,000 enterococcus. Imaging studies, MRI showed no abnormality of the auditory canal in the ear. CT scan of the abdomen and pelvis showed bibasilar scarring of the lungs and also showed possible 3 cm protruding into the duodenal lumen. No mention of abscess. ASSESSMENT AND PLAN: 1. The patient has enterococcus urinary tract infection, sensitive to vancomycin. The patient is allergic to penicillin. I will try to avoid ampicillin at this time. Continue vancomycin day #2 course of antibiotics. The patient likely has a complicated urinary tract infection, coming with generalized weakness. Case discussed with Dr. Miguel about antibiotics and insensitive of the enterococcus. 2. The patient has a history of dementia. 3. Hypertension. 4. The patient has leukopenia. 5. CT scan was noted. Deferred to Dr. Miguel for further workup. 6. The patient had dizziness. Neurology followup. 7. The patient also came in with delirium and looks like psychiatry is following. 8. Poor historian. 9. Proteinuria. 10. History of colon cancer. 11. Allergies to penicillin. 12. Social history negative. 13. Family history is noncontributory. 14. Case discussed with Dr. Miguel. 15. MAR was noted. 16. Case discussed with RN. 17. protocol. 18. Continue treatment per primary consultants. Mian Maddox M.D. DR: JENNIFER JOB#: [id number] CC:
[2016-11-12 06:53] LABS: BASOPHILS % (AUTO) 2.3 % (0.0-2.0); EOSINOPHILS % (AUTO) 4.1 % (0.0-3.0); LYMPHOCYTES % (AUTO) 26.5 % (20.0-45.0); MEAN CORPUSCULAR HEMOGLOBIN 31.4 PG (27.0-31.0); MEAN CORPUSCULAR HGB CONC 33.3 G/DL (32.0-36.0); MEAN CORPUSCULAR VOLUME 94 FL (80-99); MEAN PLATELET VOLUME 8.3 FL (6.5-10.1); PLATELET COUNT 200 K/UL (150-450); RED BLOOD COUNT 4.57 M/UL (4.70-6.10); RED CELL DISTRIBUTION WIDTH 12.8 % (11.6-14.8); WHITE BLOOD COUNT 3.9 K/UL (4.8-10.8)
[2016-11-12 07:11] LABS: INR 1.1 (0.9-1.1); PROTHROMBIN TIME 11.7 SEC (9.30-11.50)
[2016-11-12 07:12] LABS: ALANINE AMINOTRANSFERASE 22 U/L (3-41); ALBUMIN/GLOBULIN RATIO 1.3 (1.0-2.7); ANION GAP 13 (5-15); ASPARTATE AMINO TRANSFERASE 20 U/L (5-40); CALCIUM 9.5 mg/dL (8.6-10.2); CARBON DIOXIDE 25 mEQ/L (20-30); CHLORIDE 99 mEQ/L (98-107); HEMOLYSIS 8; POTASSIUM 4.3 mEQ/L (3.4-4.9); SODIUM 137 mEQ/L (135-145); TOTAL PROTEIN 6.2 g/dL (6.6-8.7)
[2016-11-12] MEDS: Heparin 5000 units/ml inj SUBQ SCH ×2 (09:00→20:25)
--- NOTE | 2016-11-12 10:12 | General Progress Note ---
Assessment/Plan Assessment/Plan U c+s Enterococci On IV Abx per ID. Abd CT B Staghorn Calculi causing recurrent resistant UTI. Needs Lithotripsy. Urology to advise. On Abd. Ct Scan has suspicious lesions in duodenum. For EGD. Subjective Allergies: Coded Allergies: PENICILLINS (Unverified Allergy, Unknown, 11/07/16) Subjective No new c/o. NPO Objective Last 24 Hour Vital Signs Date Time Temp Pulse Resp B/P Pulse Ox O2 Delivery O2 Flow Rate FiO2 11/12/16 08:00 97.9 68 14 120/78 96 Room Air 11/12/16 04:00 98.0 69 18 138/76 98 Room Air 11/12/16 00:00 98.0 66 18 132/74 96 Room Air 11/11/16 20:00 98.1 67 18 154/79 98 Room Air 11/11/16 15:03 98.1 67 14 116/57 97 Room Air 11/11/16 11:44 97.7 72 16 155/67 97 Room Air Intake and Output 11/11/16 11/12/16 19:00 07:00 Intake Total 800 ml Output Total 300 ml Balance 500 ml Intake Oral 800 ml Output Urine Total 300 ml # Voids 3 4 Laboratory Tests 11/12/16 05:40: White Blood Count 3.9L, Red Blood Count 4.57L, Hemoglobin 14.3, Hematocrit 43.1 , Mean Corpuscular Volume 94, Mean Corpuscular Hemoglobin 31.4H, Mean Corpuscular Hemoglobin Concent 33.3, Red Cell Distribution Width 12.8, Platelet Count 200, Mean Platelet Volume 8.3, Neutrophils (%) (Auto) 56.0, Lymphocytes (% ) (Auto) 26.5, Monocytes (%) (Auto) 11.0H, Eosinophils (%) (Auto) 4.1H, Basophils (%) (Auto) 2.3H, Prothrombin Time 11.7H, Prothromb Time International Ratio 1.1, Activated Partial Thromboplast Time 34H, Sodium Level 137, Potassium Level 4.3, Chloride Level 99, Carbon Dioxide Level 25, Anion Gap 13, Blood Urea Nitrogen 17, Creatinine 1.0, Estimat Glomerular Filtration Rate , Glucose Level 86, Calcium Level 9.5, Magnesium Level 2.0, Total Bilirubin 0.6, Aspartate Amino Transf (AST/SGOT) 20, Alanine Aminotransferase (ALT/SGPT) 22, Alkaline Phosphatase 68, Total Protein 6.2L, Albumin 3.6, Globulin 2.6, Albumin/Globulin Ratio 1.3 Height (Feet): 5 Height (Inches): 5.00 Weight (Pounds): 184 Objective CV RR Lungs CTa Abd SNT . BS + E No CCE HOANG PETERSON Nov 12, 2016 10:12
--- NOTE | 2016-11-12 11:23 | Infectious Diseases Prog Note ---
Assessment/Plan Assessment/Plan ASSESSMENT AND PLAN: 1. enterococcus uti - # 3 abx 2. The patient has a history of dementia. 3. Hypertension. 4. The patient has leukopenia. 5. CT scan was noted. Deferred to Dr. Miguel for further workup. 6. The patient had dizziness. Neurology followup. 7. The patient also came in with delirium and looks like psychiatry is following. 8. Poor historian. 9. Proteinuria. 10. History of colon cancer. 11. Allergies to penicillin. 12. Social history negative. 13. Family history is noncontributory. 14. Case discussed with Dr. Miguel. 15. MAR was noted. 16. Case discussed with RN. 17. skin care per protocol 18. Continue treatment per primary consultants. Subjective Constitutional: Denies: fever HEENT: Denies: congestion Respiratory: Denies: shortness of breath Cardiovascular: Denies: chest pain Gastrointestinal/Abdominal: Denies: nausea, vomiting Genitourinary: Reports: other - no cva pain, no doom, Denies: dysuria, frequency, hematuria Neurologic: Denies: headache Psychiatric: Denies: depression Skin: Denies: rash Hematologic: Denies: bleeding Musculoskeletal: Denies: pain Allergies: Coded Allergies: PENICILLINS (Unverified Allergy, Unknown, 11/07/16) Objective Vital Signs Last 24 Hour Vital Signs Date Time Temp Pulse Resp B/P Pulse Ox O2 Delivery O2 Flow Rate FiO2 11/12/16 09:00 68 120/78 11/12/16 08:00 97.9 68 14 120/78 96 Room Air 11/12/16 04:00 98.0 69 18 138/76 98 Room Air 11/12/16 00:00 98.0 66 18 132/74 96 Room Air 11/11/16 20:00 98.1 67 18 154/79 98 Room Air 11/11/16 15:03 98.1 67 14 116/57 97 Room Air 11/11/16 11:44 97.7 72 16 155/67 97 Room Air Height (Feet): 5 Height (Inches): 5.00 Weight (Pounds): 184 General Appearance: no acute distress HEENT: normocephalic, atraumatic, anicteric, mucous membranes moist, PERRL, EOMI, pharynx normal, supple, no JVD Respiratory/Chest: lungs clear, normal breath sounds, no respiratory distress, no accessory muscle use Cardiovascular: normal rate, regular rhythm, no gallop/murmur, no JVD Abdomen: normal bowel sounds, soft, non tender, no organomegaly, non distended Genitourinary: other - n odom Extremities: no cyanosis Skin: no rash Neurologic/Psychiatric: arbitrator II-XII grossly normal, alert, oriented x 3, responsive Lymphatic: no neck adenopathy Musculoskeletal: no effusion Objective MRI - H/N: Impression: No significant abnormality of the internal auditory canal or inner ear demonstrated. There is age-related cerebral volume loss and chronic deep white matter ischemic change. CT abdomen and pelvis: Impression: Multiple sequences demonstrate possible 3 cm mass protruding into the duodenal lumen. This could just represent extrinsic impression by a prominent pancreatic head. However, if real, this could represent an intrinsic duodenal mucosal tumor versus an extrinsic pancreatic head mass. Consider endoscopy for further evaluation if clinically indicated. Note that at the periphery of this apparent lesion, there is a 9 mm lipoma protruding into the duodenal lumen. 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 That finding was either artifactual or represented a normal anatomic structure Trace left perinephric fluid, nonspecific Subcentimeter low-attenuation left renal lesions, too small to characterize, most likely benign simple cortical cysts. No further followup necessary Large duodenal diverticulum incidentally noted Subcentimeter segment 8 liver low-attenuation lesion, distal to characterize, most likely benign simple cortical cyst or bile hamartomas. No further followup necessary Colonic diverticulosis Other findings as noted, including evidence of prior TURP, evidence of prior ascending colectomy, mild bilateral basilar pulmonary parenchymal scarring, minimal bronchiectasis, old splenic granulomatous disease, probable small accessory splenule and mild degenerative spondylosis changes. Microbiology Date/Time Source Procedure Growth Status 11/07/16 12:41 Urine,Clean Catch Urine Culture - Final Enterococcus Faecalis Complete Laboratory Tests Test 11/12/16 05:40 White Blood Count 3.9 K/UL (4.8-10.8) L Red Blood Count 4.57 M/UL (4.70-6.10) L Hemoglobin 14.3 G/DL (14.2-18.0) Hematocrit 43.1 % (42.0-52.0) Mean Corpuscular Volume 94 FL (80-99) Mean Corpuscular Hemoglobin 31.4 PG (27.0-31.0) H Mean Corpuscular Hemoglobin Concent 33.3 G/DL (32.0-36.0) Red Cell Distribution Width 12.8 % (11.6-14.8) Platelet Count 200 K/UL (150-450) Mean Platelet Volume 8.3 FL (6.5-10.1) Neutrophils (%) (Auto) 56.0 % (45.0-75.0) Lymphocytes (%) (Auto) 26.5 % (20.0-45.0) Monocytes (%) (Auto) 11.0 % (1.0-10.0) H Eosinophils (%) (Auto) 4.1 % (0.0-3.0) H Basophils (%) (Auto) 2.3 % (0.0-2.0) H Prothrombin Time 11.7 SEC (9.30-11.50) H Prothromb Time International Ratio 1.1 (0.9-1.1) Activated Partial Thromboplast Time 34 SEC (23-33) H Sodium Level 137 mEQ/L (135-145) Potassium Level 4.3 mEQ/L (3.4-4.9) Chloride Level 99 mEQ/L (98-107) Carbon Dioxide Level 25 mEQ/L (20-30) Anion Gap 13 (5-15) Blood Urea Nitrogen 17 mg/dL (7-23) Creatinine 1.0 mg/dL (0.7-1.2) Estimat Glomerular Filtration Rate mL/min (>60) Glucose Level 86 mg/dL (74-106) Calcium Level 9.5 mg/dL (8.6-10.2) Magnesium Level 2.0 mg/dL (1.7-2.5) Total Bilirubin 0.6 mg/dL (0.0-1.2) Aspartate Amino Transf (AST/SGOT) 20 U/L (5-40) Alanine Aminotransferase (ALT/SGPT) 22 U/L (3-41) Alkaline Phosphatase 68 U/L (40-129) Total Protein 6.2 g/dL (6.6-8.7) L Albumin 3.6 g/dL (3.5-5.2) Globulin 2.6 g/dL Albumin/Globulin Ratio 1.3 (1.0-2.7) Current Medications Medications (Trade) Dose Ordered Sig/Alan Route PRN Reason Start Time Stop Time Status Last Admin Dose Admin Acetaminophen (Tylenol) 500 mg Q6H PRN ORAL Mild Pain/Temp > 100.5 11/07/16 16:30 12/07/16 16:29 11/07/16 23:17 Amlodipine Besylate (Norvasc) 10 mg DAILY ORAL 11/10/16 09:00 12/10/16 08:59 11/10/16 08:55 Escitalopram Oxalate (Lexapro) 10 mg DAILY ORAL 11/09/16 09:00 12/09/16 08:59 11/10/16 08:55 Heparin Sodium (Porcine) (Heparin 5000 units/ml) 5,000 units EVERY 12 HOURS SUBQ 11/07/16 21:00 12/07/16 20:59 11/11/16 20:51 Vancomycin HCl 1 ea 1 ea DAILY PRN MISC Per rx protocol 11/10/16 11:45 12/10/16 11:44 Vancomycin HCl/ Dextrose (Vancomycin/D5W) 325 ml @ 162.5 mls/ hr Q24H IVPB 11/10/16 14:00 11/15/16 13:59 11/11/16 14:05 DOLLY ADAM Nov 12, 2016 11:23
--- NOTE | 2016-11-12 12:14 | GI Initial Consult Note ---
Jen Reddy N.PBobbi 11/12/16 1214: History of Present Illness General Date patient seen: Nov 12, 2016 Time patient seen: 12:13 Reason for Hospitalization: Dizziness Referring physician: HOANG JESUS Reason for Consultation: DUODENAL MASS Present Illness HPI Patient is an 85-year-old male brought in by EMS after increased dizziness. Patient had prior history of dementia. Patient recently been started on Donepezil. The patient reports having prior history of motion sickness. Patient states that he didn't come had dizzy. He had generalized body aches and nausea. This had occurred multiple times in the past per patient. GI Consult. HPI as noted above. GI consulted for duodenal mass on APCT reveal multiple sequences demonstrate possible 3 cm mass protruding into the duodenal lumen. This could just represent extrinsic impression by a prominent pancreatic head. However, if real, this could represent an intrinsic duodenal mucosal tumor versus an extrinsic pancreatic head mass. Consider endoscopy for further evaluation if clinically indicated. Note that at the periphery of this apparent lesion, there is a 9 mm lipoma protruding into the duodenal lumen. Home Meds Reported Medications Donepezil Hcl* (DONEPEZIL HCL*) 5 Mg Tablet, 5 MG ORAL DAILY, TAB 11/07/16 Escitalopram Oxalate* (LEXAPRO*) 10 Mg Tablet, 10 MG ORAL DAILY, TAB 11/07/16 Med list reviewed/reconciled: Yes Allergies: Coded Allergies: PENICILLINS (Unverified Allergy, Unknown, 11/07/16) Patient History History Provided By: Medical Record H Narrative Past Medical History: No History, Except For Hx Cancer: Yes - History of Colon Ca History Of Psychiatric Problem: Yes - Dementia Review of Systems All Other Systems: limited Physical Exam Vital Signs Date Time Temp Pulse Resp B/P Pulse Ox O2 Delivery O2 Flow Rate FiO2 11/08/16 08:05 97.6 89 23 133/82 97 Room Air Sp02 EP Interpretation: reviewed Labs Laboratory Tests Test 11/12/16 05:40 White Blood Count 3.9 K/UL (4.8-10.8) L Red Blood Count 4.57 M/UL (4.70-6.10) L Hemoglobin 14.3 G/DL (14.2-18.0) Hematocrit 43.1 % (42.0-52.0) Mean Corpuscular Volume 94 FL (80-99) Mean Corpuscular Hemoglobin 31.4 PG (27.0-31.0) H Mean Corpuscular Hemoglobin Concent 33.3 G/DL (32.0-36.0) Red Cell Distribution Width 12.8 % (11.6-14.8) Platelet Count 200 K/UL (150-450) Mean Platelet Volume 8.3 FL (6.5-10.1) Neutrophils (%) (Auto) 56.0 % (45.0-75.0) Lymphocytes (%) (Auto) 26.5 % (20.0-45.0) Monocytes (%) (Auto) 11.0 % (1.0-10.0) H Eosinophils (%) (Auto) 4.1 % (0.0-3.0) H Basophils (%) (Auto) 2.3 % (0.0-2.0) H Prothrombin Time 11.7 SEC (9.30-11.50) H Prothromb Time International Ratio 1.1 (0.9-1.1) Activated Partial Thromboplast Time 34 SEC (23-33) H Sodium Level 137 mEQ/L (135-145) Potassium Level 4.3 mEQ/L (3.4-4.9) Chloride Level 99 mEQ/L (98-107) Carbon Dioxide Level 25 mEQ/L (20-30) Anion Gap 13 (5-15) Blood Urea Nitrogen 17 mg/dL (7-23) Creatinine 1.0 mg/dL (0.7-1.2) Estimat Glomerular Filtration Rate mL/min (>60) Glucose Level 86 mg/dL (74-106) Calcium Level 9.5 mg/dL (8.6-10.2) Magnesium Level 2.0 mg/dL (1.7-2.5) Total Bilirubin 0.6 mg/dL (0.0-1.2) Aspartate Amino Transf (AST/SGOT) 20 U/L (5-40) Alanine Aminotransferase (ALT/SGPT) 22 U/L (3-41) Alkaline Phosphatase 68 U/L (40-129) Total Protein 6.2 g/dL (6.6-8.7) L Albumin 3.6 g/dL (3.5-5.2) Globulin 2.6 g/dL Albumin/Globulin Ratio 1.3 (1.0-2.7) General Appearance: well appearing, no apparent distress, alert Head: normocephalic EENT: normal ENT inspection Neck: supple Respiratory: no respiratory distress Cardiovascular: normal rate Gastrointestinal: normal inspection, non tender, soft Rectal: deferred Genitourinary: no CVA tenderness Neurologic: alert Skin: normal color Lymphatic: normal inspection, no adenopathy Current Medications Current Medications Medications (Trade) Dose Ordered Sig/Alan Route PRN Reason Start Time Stop Time Status Last Admin Dose Admin Acetaminophen (Tylenol) 500 mg Q6H PRN ORAL Mild Pain/Temp > 100.5 11/07/16 16:30 12/07/16 16:29 11/07/16 23:17 Amlodipine Besylate (Norvasc) 10 mg DAILY ORAL 11/10/16 09:00 12/10/16 08:59 11/10/16 08:55 Escitalopram Oxalate (Lexapro) 10 mg DAILY ORAL 11/09/16 09:00 12/09/16 08:59 11/10/16 08:55 Heparin Sodium (Porcine) (Heparin 5000 units/ml) 5,000 units EVERY 12 HOURS SUBQ 11/07/16 21:00 12/07/16 20:59 11/11/16 20:51 Vancomycin HCl 1 ea 1 ea DAILY PRN MISC Per rx protocol 11/10/16 11:45 12/10/16 11:44 Vancomycin HCl/ Dextrose (Vancomycin/D5W) 325 ml @ 162.5 mls/ hr Q24H IVPB 11/10/16 14:00 11/15/16 13:59 11/11/16 14:05 GI: Plan Problems: (1) Duodenal mass (2) History of colon cancer Plan APCT reviewed >> possible 3 cm mass protruding into the duodenal lumen >> intrinsic duodenal mucosal tumor versus an extrinsic pancreatic head mass. Pt scheduled for EGD/EUS today. >> REFUSED resume diet fu labs Discussed with Dr. Parekh. Thank you for referring this patient, we will follow. EVELIO PAREKH 11/14/16 1059: History of Present Illness General Reason for Hospitalization: Dizziness Present Illness Home Meds Reported Medications Donepezil Hcl* (DONEPEZIL HCL*) 5 Mg Tablet, 5 MG ORAL DAILY, TAB 11/07/16 Escitalopram Oxalate* (LEXAPRO*) 10 Mg Tablet, 10 MG ORAL DAILY, TAB 11/07/16 Allergies: Coded Allergies: PENICILLINS (Unverified Allergy, Unknown, 11/07/16) GI: Plan Plan The patient was seen and examined at bedside and all new and available data was reviewed in the patients chart. I agree with the above findings, impression and plan. (Patient seen earlier today. Signature stamp does not reflect patient encounter time.). -[facility]Re[facility] [place] Augustine Flores Nov 12, 2016 12:14 EVELIO PAREKH Nov 14, 2016 10:59
[2016-11-12] MEDS: Vancomycin 1.5 GM in D5W 325 ML IVPB SCH (14:30)
[2016-11-12] MEDS: Tamsulosin 0.4mg cap ORAL SCH (22:18)
[2016-11-13] VITALS: BP 119/70
--- NOTE | 2016-11-13 01:01 | Consultation ---
DATE OF CONSULTATION: 11/12/2016 CONSULTING PHYSICIAN: Eric Saul M.D. REFERRING PHYSICIAN: Carolyn Miguel M.D. REASON FOR CONSULTATION: For evaluation of nephrolithiasis. HISTORY OF PRESENT ILLNESS: This is an 85-year-old gentleman, who was admitted to the hospital because of dizziness. He does have mild dementia. He was noted to have a urinary tract infection. Workup revealed nephrolithiasis. Urology evaluation is requested. Apparently, the patient does have a history of BPH. He is followed by urologist at [facility]. He has had previous prostate surgery. He does not know the exact details. He states that he does have lower urinary tract symptoms and he has been on the bed trach at home. PAST MEDICAL HISTORY: Significant for above. Also, hypertension. PAST SURGICAL HISTORY: He has had abdominal surgery, exact details are unknown. CURRENT MEDICATIONS: Here in the hospital, the patient is on Norvasc, vancomycin, Lexapro, heparin, and Tylenol. ALLERGIES: Penicillin. SOCIAL HISTORY: He is currently nonsmoker. FAMILY HISTORY: Noncontributory. REVIEW OF SYSTEMS: As above. PHYSICAL EXAMINATION: GENERAL: An elderly male, in no acute distress. VITAL SIGNS: Temperature is 98.1 degrees, blood pressure 131/77, pulse is 82, and respirations 18. HEENT: Normocephalic. NECK: Supple. ABDOMEN: Soft. There is a well-healed scar. BACK: No CVA tenderness. LABORATORY DATA: White count 3.9, hemoglobin 14.3, and platelets are 200,000. BUN is 17 and creatinine 1.0. UA showed 2 to 4 RBCs, 10 to 15 WBCs, and 1+ protein. His last urine culture showed greater 100,000 Enterococcus sensitivities noted. DIAGNOSTIC IMAGING STUDIES: The patient had a CT scan of the abdomen and pelvis. There was mention of bilateral renal calculi, on the left side, the largest measuring was 13 mm and on the right was 17 mm. There is no hydronephrosis. There is mention of renal cyst. IMPRESSION: 1. Urinary tract infection. 2. Nephrolithiasis that is nonobstructive. 3. Benign prostatic hypertrophy history. 4. Lower urinary tract symptoms history. 5. Probable neurogenic bladder. 6. Hematuria. 7. Renal cyst. 8. Proteinuria. PLAN AND DISCUSSION: Again, the patient does have a urinary tract infection and he is on appropriate antibiotics. He is currently on vancomycin. He is being followed by Infectious Disease. He does have nephrolithiasis, this is not obstructive. The stones may be a source of his infection that at some point, he may need to have treatment of the stones on an elective basis. He does have a history of BPH, lower urinary tract symptoms, and possible neurogenic bladder. At this time, I will add Flomax 0.4 mg and finasteride 5 mg empirically. We will try to get his old records from [facility]. At some point, he will need to have cystoscopy to evaluate the lower urinary tract. Thank you, Dr. Miguel, for asking me to see this patient in consultation. Eric Saul M.D. DR: MARY KAY JOB#: [id number] CC:
[2016-11-13 04:00] VITALS: BP 117/80
[2016-11-13 06:23] LABS: BASOPHILS % (AUTO) 2.6 % (0.0-2.0); EOSINOPHILS % (AUTO) 3.9 % (0.0-3.0); LYMPHOCYTES % (AUTO) 24.4 % (20.0-45.0); MEAN CORPUSCULAR HEMOGLOBIN 31.2 PG (27.0-31.0); MEAN CORPUSCULAR VOLUME 95 FL (80-99); MONOCYTES % (AUTO) 13.2 % (1.0-10.0); NEUTROPHILS % (AUTO) 55.8 % (45.0-75.0); PLATELET COUNT 200 K/UL (150-450); RED BLOOD COUNT 4.74 M/UL (4.70-6.10)
[2016-11-13 06:39] LABS: ANION GAP 16 (5-15); CALCIUM 9.5 mg/dL (8.6-10.2); CARBON DIOXIDE 23 mEQ/L (20-30); CHLORIDE 99 mEQ/L (98-107); HEMOLYSIS 6; POTASSIUM 4.2 mEQ/L (3.4-4.9); SODIUM 138 mEQ/L (135-145)
[2016-11-13 08:00] VITALS: BP 124/66
[2016-11-13] MEDS: Heparin 5000 units/ml inj SUBQ SCH ×2 (09:10→21:21)
--- NOTE | 2016-11-13 09:36 | Urology Progress Note ---
Assessment/Plan Assessment/Plan 1. Urinary tract infection. 2. Nephrolithiasis that is nonobstructive. 3. Benign prostatic hypertrophy history. 4. Lower urinary tract symptoms history. 5. Probable neurogenic bladder. 6. Hematuria. 7. Renal cyst. 8. Proteinuria. abx as ordered, per ID flomax and proscar monitor clinically Subjective Allergies: Coded Allergies: PENICILLINS (Unverified Allergy, Unknown, 11/07/16) Subjective all noted, no new changes Objective Last 24 Hour Vital Signs Date Time Temp Pulse Resp B/P Pulse Ox O2 Delivery O2 Flow Rate FiO2 11/13/16 09:07 93 124/66 11/13/16 08:00 97.5 93 20 124/66 96 Room Air 11/13/16 04:00 98.1 80 18 117/80 94 Room Air 11/13/16 00:00 98.2 73 20 119/70 95 Room Air 11/12/16 20:00 98.1 83 18 131/77 96 Room Air 11/12/16 15:53 97.5 74 17 140/79 95 Room Air 11/12/16 13:45 98.1 93 18 124/81 95 Room Air 11/12/16 12:00 98.1 93 18 124/81 95 Room Air Intake and Output 11/12/16 11/13/16 19:00 07:00 Intake Total 565.0 ml 840 ml Output Total 450 ml Balance 565.0 ml 390 ml Intake Oral 240 ml 840 ml IV Total 325.0 ml Output Urine Total 450 ml # Voids 4 Microbiology Date/Time Source Procedure Growth Status 11/07/16 12:41 Urine,Clean Catch Urine Culture - Final Enterococcus Faecalis Complete Current Medications Medications (Trade) Dose Ordered Sig/Alan Route PRN Reason Start Time Stop Time Status Last Admin Dose Admin Acetaminophen (Tylenol) 500 mg Q6H PRN ORAL Mild Pain/Temp > 100.5 11/07/16 16:30 12/07/16 16:29 11/07/16 23:17 Amlodipine Besylate (Norvasc) 10 mg DAILY ORAL 11/10/16 09:00 12/10/16 08:59 11/13/16 09:07 Escitalopram Oxalate (Lexapro) 10 mg DAILY ORAL 11/09/16 09:00 12/09/16 08:59 11/13/16 09:07 Finasteride (Proscar) 5 mg DAILY ORAL 11/13/16 09:00 12/13/16 08:59 11/13/16 09:07 Heparin Sodium (Porcine) (Heparin 5000 units/ml) 5,000 units EVERY 12 HOURS SUBQ 11/07/16 21:00 12/07/16 20:59 11/13/16 09:10 Tamsulosin HCl (Flomax) 0.4 mg BEDTIME ORAL 11/12/16 22:00 12/12/16 21:59 11/12/16 22:18 Vancomycin HCl 1 ea 1 ea DAILY PRN MISC Per rx protocol 11/10/16 11:45 12/10/16 11:44 Vancomycin HCl/ Dextrose (Vancomycin/D5W) 325 ml @ 162.5 mls/ hr Q24H IVPB 11/10/16 14:00 11/15/16 13:59 11/12/16 14:30 Laboratory Tests 11/13/16 05:45: White Blood Count 4.0L, Red Blood Count 4.74, Hemoglobin 14.8, Hematocrit 44.8, Mean Corpuscular Volume 95, Mean Corpuscular Hemoglobin 31.2H, Mean Corpuscular Hemoglobin Concent 33.0, Red Cell Distribution Width 13.0, Platelet Count 200, Mean Platelet Volume 9.0, Neutrophils (%) (Auto) 55.8, Lymphocytes (%) (Auto) 24.4, Monocytes (%) (Auto) 13.2H, Eosinophils (%) (Auto) 3.9H, Basophils (%) ( Auto) 2.6H, Sodium Level 138, Potassium Level 4.2, Chloride Level 99, Carbon Dioxide Level 23, Anion Gap 16H, Blood Urea Nitrogen 16, Creatinine 1.0, Estimat Glomerular Filtration Rate , Glucose Level 105, Calcium Level 9.5 Height (Feet): 5 Height (Inches): 5.00 Weight (Pounds): 184 Objective exam stable BALJINDER CALVILLO Nov 13, 2016 09:36
--- NOTE | 2016-11-13 10:08 | General Progress Note ---
Assessment/Plan Assessment/Plan 1) Enterococcus UTI 2) lesion in duodenum 3) Staghorn calculus 4)HTN 5) hx of colon cancer 6) BPH 7) hematuria plan Discussed with GI who will discuss with family for endoscopy f/u continue Abx Subjective Allergies: Coded Allergies: PENICILLINS (Unverified Allergy, Unknown, 11/07/16) Subjective Denies any c/o. confused Objective Last 24 Hour Vital Signs Date Time Temp Pulse Resp B/P Pulse Ox O2 Delivery O2 Flow Rate FiO2 11/13/16 09:07 93 124/66 11/13/16 08:00 97.5 93 20 124/66 96 Room Air 11/13/16 04:00 98.1 80 18 117/80 94 Room Air 11/13/16 00:00 98.2 73 20 119/70 95 Room Air 11/12/16 20:00 98.1 83 18 131/77 96 Room Air 11/12/16 15:53 97.5 74 17 140/79 95 Room Air 11/12/16 13:45 98.1 93 18 124/81 95 Room Air 11/12/16 12:00 98.1 93 18 124/81 95 Room Air Intake and Output 11/12/16 11/13/16 19:00 07:00 Intake Total 565.0 ml 840 ml Output Total 450 ml Balance 565.0 ml 390 ml Intake Oral 240 ml 840 ml IV Total 325.0 ml Output Urine Total 450 ml # Voids 4 Laboratory Tests 11/13/16 05:45: White Blood Count 4.0L, Red Blood Count 4.74, Hemoglobin 14.8, Hematocrit 44.8, Mean Corpuscular Volume 95, Mean Corpuscular Hemoglobin 31.2H, Mean Corpuscular Hemoglobin Concent 33.0, Red Cell Distribution Width 13.0, Platelet Count 200, Mean Platelet Volume 9.0, Neutrophils (%) (Auto) 55.8, Lymphocytes (%) (Auto) 24.4, Monocytes (%) (Auto) 13.2H, Eosinophils (%) (Auto) 3.9H, Basophils (%) ( Auto) 2.6H, Sodium Level 138, Potassium Level 4.2, Chloride Level 99, Carbon Dioxide Level 23, Anion Gap 16H, Blood Urea Nitrogen 16, Creatinine 1.0, Estimat Glomerular Filtration Rate , Glucose Level 105, Calcium Level 9.5 Height (Feet): 5 Height (Inches): 5.00 Weight (Pounds): 184 Objective NAD, confused CTA b/l,no rales, no rhonchi S1,S2,RRR, no M/R/g soft, non tender, BS+ no edema LUDWIG,MOSES Nov 13, 2016 10:08
--- NOTE | 2016-11-13 10:40 | General Progress Note ---
Assessment/Plan Problem List: (1) Duodenal mass ICD Codes: K31.89 - Other diseases of stomach and duodenum SNOMED: 271640674 (2) Dementia arising in the senium and presenium ICD Codes: F03.90 - Unspecified dementia without behavioral disturbance SNOMED: 310352580410404 (3) History of colon cancer ICD Codes: Z85.038 - Personal history of other malignant neoplasm of large intestine SNOMED: 030896913 Assessment/Plan cea patient refused GI procedures yesterday left a massage for family Subjective ROS Limited/Unobtainable: Yes Allergies: Coded Allergies: PENICILLINS (Unverified Allergy, Unknown, 11/07/16) Subjective no event Objective Last 24 Hour Vital Signs Date Time Temp Pulse Resp B/P Pulse Ox O2 Delivery O2 Flow Rate FiO2 11/13/16 09:07 93 124/66 11/13/16 08:00 97.5 93 20 124/66 96 Room Air 11/13/16 04:00 98.1 80 18 117/80 94 Room Air 11/13/16 00:00 98.2 73 20 119/70 95 Room Air 11/12/16 20:00 98.1 83 18 131/77 96 Room Air 11/12/16 15:53 97.5 74 17 140/79 95 Room Air 11/12/16 13:45 98.1 93 18 124/81 95 Room Air 11/12/16 12:00 98.1 93 18 124/81 95 Room Air Intake and Output 11/12/16 11/13/16 19:00 07:00 Intake Total 565.0 ml 840 ml Output Total 450 ml Balance 565.0 ml 390 ml Intake Oral 240 ml 840 ml IV Total 325.0 ml Output Urine Total 450 ml # Voids 4 Laboratory Tests 11/13/16 05:45: White Blood Count 4.0L, Red Blood Count 4.74, Hemoglobin 14.8, Hematocrit 44.8, Mean Corpuscular Volume 95, Mean Corpuscular Hemoglobin 31.2H, Mean Corpuscular Hemoglobin Concent 33.0, Red Cell Distribution Width 13.0, Platelet Count 200, Mean Platelet Volume 9.0, Neutrophils (%) (Auto) 55.8, Lymphocytes (%) (Auto) 24.4, Monocytes (%) (Auto) 13.2H, Eosinophils (%) (Auto) 3.9H, Basophils (%) ( Auto) 2.6H, Sodium Level 138, Potassium Level 4.2, Chloride Level 99, Carbon Dioxide Level 23, Anion Gap 16H, Blood Urea Nitrogen 16, Creatinine 1.0, Estimat Glomerular Filtration Rate , Glucose Level 105, Calcium Level 9.5 Height (Feet): 5 Height (Inches): 5.00 Weight (Pounds): 184 General Appearance: no apparent distress EENT: normal ENT inspection Neck: supple Cardiovascular: normal rate Respiratory/Chest: lungs clear Abdomen: normal bowel sounds, non tender, soft Extremities: non-tender SHELLIE PAREKH Nov 13, 2016 10:40
--- NOTE | 2016-11-13 11:29 | Infectious Diseases Prog Note ---
Assessment/Plan Assessment/Plan ASSESSMENT AND PLAN: 1. enterococcus uti - # 4 abx, clinically stable 2. The patient has a history of dementia. 3. Hypertension. 4. The patient has leukopenia. 5. CT scan was noted. Deferred to Dr. Miguel for further workup. 6. The patient had dizziness. Neurology followup. 7. The patient also came in with delirium and looks like psychiatry is following. 8. Poor historian. 9. Proteinuria. 10. History of colon cancer. 11. Allergies to penicillin. 12. Social history negative. 13. Family history is noncontributory. 14. Case discussed with Dr. Miguel. 15. MAR was noted. 16. Case discussed with RN. 17. skin care per protocol 18. Continue treatment per primary consultants. Subjective Constitutional: Reports: other - alert, ambulating , Denies: fever HEENT: Denies: congestion Respiratory: Denies: shortness of breath Cardiovascular: Denies: chest pain Gastrointestinal/Abdominal: Denies: diarrhea, nausea, vomiting Neurologic: Denies: headache Psychiatric: Denies: depression Skin: Denies: rash Hematologic: Denies: bleeding Musculoskeletal: Denies: pain Allergies: Coded Allergies: PENICILLINS (Unverified Allergy, Unknown, 11/07/16) Objective Vital Signs Last 24 Hour Vital Signs Date Time Temp Pulse Resp B/P Pulse Ox O2 Delivery O2 Flow Rate FiO2 11/13/16 09:07 93 124/66 11/13/16 08:00 97.5 93 20 124/66 96 Room Air 11/13/16 04:00 98.1 80 18 117/80 94 Room Air 11/13/16 00:00 98.2 73 20 119/70 95 Room Air 11/12/16 20:00 98.1 83 18 131/77 96 Room Air 11/12/16 15:53 97.5 74 17 140/79 95 Room Air 11/12/16 13:45 98.1 93 18 124/81 95 Room Air 11/12/16 12:00 98.1 93 18 124/81 95 Room Air Height (Feet): 5 Height (Inches): 5.00 Weight (Pounds): 184 General Appearance: no acute distress HEENT: normocephalic, atraumatic, anicteric, mucous membranes moist, PERRL, EOMI, pharynx normal, supple, no JVD Respiratory/Chest: lungs clear, normal breath sounds, no respiratory distress, no accessory muscle use Cardiovascular: normal rate, regular rhythm, no gallop/murmur, no JVD Abdomen: normal bowel sounds, soft, non tender, no organomegaly, non distended Genitourinary: other - no odom Extremities: no cyanosis Skin: no rash 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 There is age-related cerebral volume loss and chronic deep white matter ischemic change. CT abdomen and pelvis: Impression: Multiple sequences demonstrate possible 3 cm mass protruding into the duodenal lumen. This could just represent extrinsic impression by a prominent pancreatic head. However, if real, this could represent an intrinsic duodenal mucosal tumor versus an extrinsic pancreatic head mass. Consider endoscopy for further evaluation if clinically indicated. Note that at the periphery of this apparent lesion, there is a 9 mm lipoma protruding into the duodenal lumen. 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 That finding was either artifactual or represented a normal anatomic structure Trace left perinephric fluid, nonspecific Subcentimeter low-attenuation left renal lesions, too small to characterize, most likely benign simple cortical cysts. No further followup necessary Large duodenal diverticulum incidentally noted Subcentimeter segment 8 liver low-attenuation lesion, distal to characterize, most likely benign simple cortical cyst or bile hamartomas. No further followup necessary Colonic diverticulosis Other findings as noted, including evidence of prior TURP, evidence of prior ascending colectomy, mild bilateral basilar pulmonary parenchymal scarring, minimal bronchiectasis, old splenic granulomatous disease, probable small accessory splenule and mild degenerative spondylosis changes. Microbiology Date/Time Source Procedure Growth Status 11/07/16 12:41 Urine,Clean Catch Urine Culture - Final Enterococcus Faecalis Complete Laboratory Tests Test 11/13/16 05:45 White Blood Count 4.0 K/UL (4.8-10.8) L Red Blood Count 4.74 M/UL (4.70-6.10) Hemoglobin 14.8 G/DL (14.2-18.0) Hematocrit 44.8 % (42.0-52.0) Mean Corpuscular Volume 95 FL (80-99) Mean Corpuscular Hemoglobin 31.2 PG (27.0-31.0) H Mean Corpuscular Hemoglobin Concent 33.0 G/DL (32.0-36.0) Red Cell Distribution Width 13.0 % (11.6-14.8) Platelet Count 200 K/UL (150-450) Mean Platelet Volume 9.0 FL (6.5-10.1) Neutrophils (%) (Auto) 55.8 % (45.0-75.0) Lymphocytes (%) (Auto) 24.4 % (20.0-45.0) Monocytes (%) (Auto) 13.2 % (1.0-10.0) H Eosinophils (%) (Auto) 3.9 % (0.0-3.0) H Basophils (%) (Auto) 2.6 % (0.0-2.0) H Sodium Level 138 mEQ/L (135-145) Potassium Level 4.2 mEQ/L (3.4-4.9) Chloride Level 99 mEQ/L (98-107) Carbon Dioxide Level 23 mEQ/L (20-30) Anion Gap 16 (5-15) H Blood Urea Nitrogen 16 mg/dL (7-23) Creatinine 1.0 mg/dL (0.7-1.2) Estimat Glomerular Filtration Rate mL/min (>60) Glucose Level 105 mg/dL (74-106) Calcium Level 9.5 mg/dL (8.6-10.2) Current Medications Medications (Trade) Dose Ordered Sig/Alan Route PRN Reason Start Time Stop Time Status Last Admin Dose Admin Acetaminophen (Tylenol) 500 mg Q6H PRN ORAL Mild Pain/Temp > 100.5 11/07/16 16:30 12/07/16 16:29 11/07/16 23:17 Amlodipine Besylate (Norvasc) 10 mg DAILY ORAL 11/10/16 09:00 12/10/16 08:59 11/13/16 09:07 Escitalopram Oxalate (Lexapro) 10 mg DAILY ORAL 11/09/16 09:00 12/09/16 08:59 11/13/16 09:07 Finasteride (Proscar) 5 mg DAILY ORAL 11/13/16 09:00 12/13/16 08:59 11/13/16 09:07 Heparin Sodium (Porcine) (Heparin 5000 units/ml) 5,000 units EVERY 12 HOURS SUBQ 11/07/16 21:00 12/07/16 20:59 11/13/16 09:10 Tamsulosin HCl (Flomax) 0.4 mg BEDTIME ORAL 11/12/16 22:00 12/12/16 21:59 11/12/16 22:18 Vancomycin HCl 1 ea 1 ea DAILY PRN MISC Per rx protocol 11/10/16 11:45 12/10/16 11:44 Vancomycin HCl/ Dextrose (Vancomycin/D5W) 325 ml @ 162.5 mls/ hr Q24H IVPB 11/10/16 14:00 11/15/16 13:59 11/12/16 14:30 DOLLY ADAM Nov 13, 2016 11:29
[2016-11-13 12:00] VITALS: BP 129/78
[2016-11-13] MEDS: Vancomycin 1.5 GM in D5W 325 ML IVPB SCH (14:15)
[2016-11-13 16:00] VITALS: BP 124/72
[2016-11-13 19:38] VITALS: BP 172/87
[2016-11-13] MEDS: Tamsulosin 0.4mg cap ORAL SCH (21:20)
[2016-11-14] VITALS: BP 118/73
[2016-11-14 04:00] VITALS: BP 120/68
[2016-11-14 08:00] VITALS: BP 138/80
[2016-11-14] MEDS: Heparin 5000 units/ml inj SUBQ SCH ×2 (09:02→21:13)
--- NOTE | 2016-11-14 09:05 | General Progress Note ---
Assessment/Plan Problem List: (1) Duodenal mass ICD Codes: K31.89 - Other diseases of stomach and duodenum SNOMED: 289688822 (2) Dementia arising in the senium and presenium ICD Codes: F03.90 - Unspecified dementia without behavioral disturbance SNOMED: 725315604182336 (3) History of colon cancer ICD Codes: Z85.038 - Personal history of other malignant neoplasm of large intestine SNOMED: 492967449 Assessment/Plan normal CEA and ca 19-9 patient refused GI procedures left a massage for family plan egd/eus tomorrow if family consent Subjective ROS Limited/Unobtainable: Yes Allergies: Coded Allergies: PENICILLINS (Unverified Allergy, Unknown, 11/07/16) Subjective no event Objective Last 24 Hour Vital Signs Date Time Temp Pulse Resp B/P Pulse Ox O2 Delivery O2 Flow Rate FiO2 11/14/16 09:02 70 138/80 11/14/16 08:00 97.7 70 18 138/80 97 Room Air 11/14/16 04:00 97.6 74 20 120/68 94 Room Air 11/14/16 00:00 97.5 76 18 118/73 95 Room Air 11/13/16 19:38 97.3 75 19 172/87 95 Room Air 11/13/16 16:00 98.1 75 20 124/72 96 Room Air 11/13/16 12:00 97.3 80 20 129/78 95 Room Air 11/13/16 09:07 93 124/66 Intake and Output 11/13/16 11/14/16 19:00 07:00 Intake Total 525.0 ml 120 ml Output Total 600 ml Balance 525.0 ml -480 ml Intake Oral 200 ml 120 ml IV Total 325.0 ml Output Urine Total 600 ml # Voids 5 4 Laboratory Tests 11/13/16 13:01: Vancomycin Level Trough 12.6H 11/14/16 05:15: Carcinoembryonic Antigen 2.2, CA 19-9 Antigen 0.600 Height (Feet): 5 Height (Inches): 5.00 Weight (Pounds): 184 General Appearance: alert EENT: normal ENT inspection Neck: supple Cardiovascular: normal rate Respiratory/Chest: lungs clear Abdomen: normal bowel sounds, non tender, soft Extremities: non-tender SHELLIE PAREKH Nov 14, 2016 09:05
--- NOTE | 2016-11-14 09:49 | General Progress Note ---
Assessment/Plan Assessment/Plan 1) Enterococcus UTI 2) lesion in duodenum 3) Staghorn calculus 4)HTN 5) hx of colon cancer 6) BPH 7) hematuria plan per GI--pt refused endoscopy. Pt is somewhat confused and left the message to family. Will do endo once family give consent f/u continue Abx Subjective Allergies: Coded Allergies: PENICILLINS (Unverified Allergy, Unknown, 11/07/16) Subjective Denies any c/o. pt stated he ate only 50-60% this AM. Denies any abd pain Objective Last 24 Hour Vital Signs Date Time Temp Pulse Resp B/P Pulse Ox O2 Delivery O2 Flow Rate FiO2 11/14/16 09:02 70 138/80 11/14/16 08:00 97.7 70 18 138/80 97 Room Air 11/14/16 04:00 97.6 74 20 120/68 94 Room Air 11/14/16 00:00 97.5 76 18 118/73 95 Room Air 11/13/16 19:38 97.3 75 19 172/87 95 Room Air 11/13/16 16:00 98.1 75 20 124/72 96 Room Air 11/13/16 12:00 97.3 80 20 129/78 95 Room Air Intake and Output 11/13/16 11/14/16 19:00 07:00 Intake Total 525.0 ml 120 ml Output Total 600 ml Balance 525.0 ml -480 ml Intake Oral 200 ml 120 ml IV Total 325.0 ml Output Urine Total 600 ml # Voids 5 4 Laboratory Tests 11/13/16 13:01: Vancomycin Level Trough 12.6H 11/14/16 05:15: Carcinoembryonic Antigen 2.2, CA 19-9 Antigen 0.600 Height (Feet): 5 Height (Inches): 5.00 Weight (Pounds): 184 Objective NAD, confused CTA b/l,no rales, no rhonchi S1,S2,RRR, no M/R/g soft, non tender, BS+ no edema LUDWIG,MSOES Nov 14, 2016 09:49
--- NOTE | 2016-11-14 11:43 | Urology Progress Note ---
Assessment/Plan Assessment/Plan 1. Urinary tract infection. 2. Nephrolithiasis that is nonobstructive. 3. Benign prostatic hypertrophy history. 4. Lower urinary tract symptoms history. 5. Probable neurogenic bladder. 6. Hematuria. 7. Renal cyst. 8. Proteinuria. abx as ordered, per ID flomax and proscar monitor clinically Subjective Allergies: Coded Allergies: PENICILLINS (Unverified Allergy, Unknown, 11/07/16) Subjective all noted, no new changes Objective Last 24 Hour Vital Signs Date Time Temp Pulse Resp B/P Pulse Ox O2 Delivery O2 Flow Rate FiO2 11/14/16 09:02 70 138/80 11/14/16 08:00 97.7 70 18 138/80 97 Room Air 11/14/16 04:00 97.6 74 20 120/68 94 Room Air 11/14/16 00:00 97.5 76 18 118/73 95 Room Air 11/13/16 19:38 97.3 75 19 172/87 95 Room Air 11/13/16 16:00 98.1 75 20 124/72 96 Room Air 11/13/16 12:00 97.3 80 20 129/78 95 Room Air Intake and Output 11/13/16 11/14/16 19:00 07:00 Intake Total 525.0 ml 120 ml Output Total 600 ml Balance 525.0 ml -480 ml Intake Oral 200 ml 120 ml IV Total 325.0 ml Output Urine Total 600 ml # Voids 5 4 Microbiology Date/Time Source Procedure Growth Status 11/07/16 12:41 Urine,Clean Catch Urine Culture - Final Enterococcus Faecalis Complete Current Medications Medications (Trade) Dose Ordered Sig/Alan Route PRN Reason Start Time Stop Time Status Last Admin Dose Admin Acetaminophen (Tylenol) 500 mg Q6H PRN ORAL Mild Pain/Temp > 100.5 11/07/16 16:30 12/07/16 16:29 11/07/16 23:17 Amlodipine Besylate (Norvasc) 10 mg DAILY ORAL 11/10/16 09:00 12/10/16 08:59 11/14/16 09:02 Escitalopram Oxalate (Lexapro) 10 mg DAILY ORAL 11/09/16 09:00 12/09/16 08:59 11/14/16 09:01 Finasteride 5 mg 5 mg DAILY ORAL 11/13/16 09:00 12/13/16 08:59 11/14/16 09:01 Heparin Sodium (Porcine) (Heparin 5000 units/ml) 5,000 units EVERY 12 HOURS SUBQ 11/07/16 21:00 12/07/16 20:59 11/14/16 09:02 Tamsulosin HCl (Flomax) 0.4 mg BEDTIME ORAL 11/12/16 22:00 12/12/16 21:59 11/13/16 21:20 Vancomycin HCl (Vanco rx to dose) 1 ea DAILY PRN MISC Per rx protocol 11/10/16 11:45 12/10/16 11:44 Vancomycin HCl/ Dextrose (Vancomycin/D5W) 325 ml @ 162.5 mls/ hr Q24H IVPB 11/13/16 14:00 11/18/16 13:59 11/13/16 14:15 Laboratory Tests 11/13/16 13:01: Vancomycin Level Trough 12.6H 11/14/16 05:15: Carcinoembryonic Antigen 2.2, CA 19-9 Antigen 0.600 Height (Feet): 5 Height (Inches): 5.00 Weight (Pounds): 184 Objective exam stable BALJINDER CALVILLO Nov 14, 2016 11:43
[2016-11-14 11:58] VITALS: BP 132/69
[2016-11-14] MEDS: Vancomycin 1.5 GM in D5W 325 ML IVPB SCH (15:51)
[2016-11-14 16:05] VITALS: BP 102/63
--- NOTE | 2016-11-14 18:48 | Infectious Diseases Prog Note ---
Assessment/Plan Assessment/Plan ASSESSMENT AND PLAN: 1. enterococcus uti - # 5 abx, clinically stable 2. The patient has a history of dementia. 3. Hypertension. 4. The patient has leukopenia. 5. CT scan was noted. Deferred to Dr. Miguel for further workup. 6. The patient had dizziness. Neurology followup. 7. The patient also came in with delirium and looks like psychiatry is following. 8. Poor historian. 9. Proteinuria. 10. History of colon cancer. 11. Allergies to penicillin. 12. Social history negative. 13. Family history is noncontributory. 14. Case discussed with Dr. Miguel. 15. MAR was noted. 16. Case discussed with RN. 17. skin care per protocol 18. Continue treatment per primary consultants. Subjective Constitutional: Denies: fever HEENT: Denies: congestion Respiratory: Denies: shortness of breath Cardiovascular: Denies: chest pain Gastrointestinal/Abdominal: Denies: diarrhea, nausea, vomiting Genitourinary: Denies: dysuria Neurologic: Denies: headache Psychiatric: Denies: depression Skin: Denies: rash Hematologic: Denies: bleeding Musculoskeletal: Denies: pain Allergies: Coded Allergies: PENICILLINS (Unverified Allergy, Unknown, 11/07/16) Objective Vital Signs Last 24 Hour Vital Signs Date Time Temp Pulse Resp B/P Pulse Ox O2 Delivery O2 Flow Rate FiO2 11/14/16 16:05 98.4 72 17 102/63 97 Room Air 11/14/16 11:58 98.2 97 17 132/69 98 Room Air 11/14/16 09:02 70 138/80 11/14/16 08:00 97.7 70 18 138/80 97 Room Air 11/14/16 04:00 97.6 74 20 120/68 94 Room Air 11/14/16 00:00 97.5 76 18 118/73 95 Room Air 11/13/16 19:38 97.3 75 19 172/87 95 Room Air Height (Feet): 5 Height (Inches): 5.00 Weight (Pounds): 184 General Appearance: no acute distress HEENT: normocephalic, atraumatic, anicteric, mucous membranes moist, PERRL, EOMI, pharynx normal, supple, no JVD Respiratory/Chest: lungs clear, normal breath sounds, no respiratory distress, no accessory muscle use Cardiovascular: normal rate, regular rhythm, no gallop/murmur, no JVD Abdomen: normal bowel sounds, soft, non tender, no organomegaly, non distended Genitourinary: other - no odom Extremities: no cyanosis, no clubbing Skin: no rash 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 There is age-related cerebral volume loss and chronic deep white matter ischemic change. CT abdomen and pelvis: Impression: Multiple sequences demonstrate possible 3 cm mass protruding into the duodenal lumen. This could just represent extrinsic impression by a prominent pancreatic head. However, if real, this could represent an intrinsic duodenal mucosal tumor versus an extrinsic pancreatic head mass. Consider endoscopy for further evaluation if clinically indicated. Note that at the periphery of this apparent lesion, there is a 9 mm lipoma protruding into the duodenal lumen. 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 That finding was either artifactual or represented a normal anatomic structure Trace left perinephric fluid, nonspecific Subcentimeter low-attenuation left renal lesions, too small to characterize, most likely benign simple cortical cysts. No further followup necessary Large duodenal diverticulum incidentally noted Subcentimeter segment 8 liver low-attenuation lesion, distal to characterize, most likely benign simple cortical cyst or bile hamartomas. No further followup necessary Colonic diverticulosis Other findings as noted, including evidence of prior TURP, evidence of prior ascending colectomy, mild bilateral basilar pulmonary parenchymal scarring, minimal bronchiectasis, old splenic granulomatous disease, probable small accessory splenule and mild degenerative spondylosis changes. Microbiology Date/Time Source Procedure Growth Status 11/07/16 12:41 Urine,Clean Catch Urine Culture - Final Enterococcus Faecalis Complete Labs Test 11/12/16 05:40 11/13/16 05:45 11/13/16 13:01 11/14/16 05:15 White Blood Count 3.9 K/UL (4.8-10.8) 4.0 K/UL (4.8-10.8) Red Blood Count 4.57 M/UL (4.70-6.10) 4.74 M/UL (4.70-6.10) Hemoglobin 14.3 G/DL (14.2-18.0) 14.8 G/DL (14.2-18.0) Hematocrit 43.1 % (42.0-52.0) 44.8 % (42.0-52.0) Mean Corpuscular Volume 94 FL (80-99) 95 FL (80-99) Mean Corpuscular Hemoglobin 31.4 PG (27.0-31.0) 31.2 PG (27.0-31.0) Mean Corpuscular Hemoglobin Concent 33.3 G/DL (32.0-36.0) 33.0 G/DL (32.0-36.0) Red Cell Distribution Width 12.8 % (11.6-14.8) 13.0 % (11.6-14.8) Platelet Count 200 K/UL (150-450) 200 K/UL (150-450) Mean Platelet Volume 8.3 FL (6.5-10.1) 9.0 FL (6.5-10.1) Neutrophils (%) (Auto) 56.0 % (45.0-75.0) 55.8 % (45.0-75.0) Lymphocytes (%) (Auto) 26.5 % (20.0-45.0) 24.4 % (20.0-45.0) Monocytes (%) (Auto) 11.0 % (1.0-10.0) 13.2 % (1.0-10.0) Eosinophils (%) (Auto) 4.1 % (0.0-3.0) 3.9 % (0.0-3.0) Basophils (%) (Auto) 2.3 % (0.0-2.0) 2.6 % (0.0-2.0) Prothrombin Time 11.7 SEC (9.30-11.50) Prothromb Time International Ratio 1.1 (0.9-1.1) Activated Partial Thromboplast Time 34 SEC (23-33) Sodium Level 137 mEQ/L (135-145) 138 mEQ/L (135-145) Potassium Level 4.3 mEQ/L (3.4-4.9) 4.2 mEQ/L (3.4-4.9) Chloride Level 99 mEQ/L (98-107) 99 mEQ/L (98-107) Carbon Dioxide Level 25 mEQ/L (20-30) 23 mEQ/L (20-30) Anion Gap 13 (5-15) 16 (5-15) Blood Urea Nitrogen 17 mg/dL (7-23) 16 mg/dL (7-23) Creatinine 1.0 mg/dL (0.7-1.2) 1.0 mg/dL (0.7-1.2) Estimat Glomerular Filtration Rate mL/min (>60) mL/min (>60) Glucose Level 86 mg/dL (74-106) 105 mg/dL (74-106) Calcium Level 9.5 mg/dL (8.6-10.2) 9.5 mg/dL (8.6-10.2) Magnesium Level 2.0 mg/dL (1.7-2.5) Total Bilirubin 0.6 mg/dL (0.0-1.2) Aspartate Amino Transf (AST/SGOT) 20 U/L (5-40) Alanine Aminotransferase (ALT/SGPT) 22 U/L (3-41) Alkaline Phosphatase 68 U/L (40-129) Total Protein 6.2 g/dL (6.6-8.7) Albumin 3.6 g/dL (3.5-5.2) Globulin 2.6 g/dL Albumin/Globulin Ratio 1.3 (1.0-2.7) Vancomycin Level Trough 12.6 ug/mL (5.0-12.0) Carcinoembryonic Antigen 2.2 ng/mL CA 19-9 Antigen 0.600 U/mL (< 37) Laboratory Tests Test 11/14/16 05:15 Carcinoembryonic Antigen 2.2 ng/mL CA 19-9 Antigen 0.600 U/mL (< 37) Current Medications Medications (Trade) Dose Ordered Sig/Alan Route PRN Reason Start Time Stop Time Status Last Admin Dose Admin Acetaminophen (Tylenol) 500 mg Q6H PRN ORAL Mild Pain/Temp > 100.5 11/07/16 16:30 12/07/16 16:29 11/07/16 23:17 Amlodipine Besylate (Norvasc) 10 mg DAILY ORAL 11/10/16 09:00 12/10/16 08:59 11/14/16 09:02 Escitalopram Oxalate (Lexapro) 10 mg DAILY ORAL 11/09/16 09:00 12/09/16 08:59 11/14/16 09:01 Finasteride 5 mg 5 mg DAILY ORAL 11/13/16 09:00 12/13/16 08:59 11/14/16 09:01 Heparin Sodium (Porcine) (Heparin 5000 units/ml) 5,000 units EVERY 12 HOURS SUBQ 11/07/16 21:00 12/07/16 20:59 11/14/16 09:02 Tamsulosin HCl (Flomax) 0.4 mg BEDTIME ORAL 11/12/16 22:00 12/12/16 21:59 11/13/16 21:20 Vancomycin HCl (Vanco rx to dose) 1 ea DAILY PRN MISC Per rx protocol 11/10/16 11:45 12/10/16 11:44 Vancomycin HCl/ Dextrose (Vancomycin/D5W) 325 ml @ 162.5 mls/ hr Q24H IVPB 11/13/16 14:00 11/18/16 13:59 11/14/16 15:51 DOLLY ADAM Nov 14, 2016 18:48
[2016-11-14 20:00] VITALS: BP 139/81
[2016-11-14] MEDS: Tamsulosin 0.4mg cap ORAL SCH (21:11)
[2016-11-15] VITALS (11 sets, daily range): BP systolic 114–140; BP diastolic 68–80
[2016-11-15 06:18] LABS: MEAN CORPUSCULAR HEMOGLOBIN 31.1 PG (27.0-31.0); MEAN CORPUSCULAR VOLUME 94 FL (80-99); MEAN PLATELET VOLUME 8.5 FL (6.5-10.1); PLATELET COUNT 182 K/UL (150-450); RED BLOOD COUNT 4.56 M/UL (4.70-6.10); RED CELL DISTRIBUTION WIDTH 12.7 % (11.6-14.8); WHITE BLOOD COUNT 3.4 K/UL (4.8-10.8)
[2016-11-15 06:45] LABS: ANION GAP 14 (5-15); CALCIUM 9.5 mg/dL (8.6-10.2); CARBON DIOXIDE 23 mEQ/L (20-30); CHLORIDE 98 mEQ/L (98-107); CREATININE 0.9 mg/dL (0.7-1.2); HEMOLYSIS 12; POTASSIUM 4.2 mEQ/L (3.4-4.9); SODIUM 135 mEQ/L (135-145)
--- NOTE | 2016-11-15 08:44 | General Progress Note ---
Assessment/Plan Assessment/Plan U c+s Enterococci On IV Abx per ID. Abd CT B Staghorn Calculi causing recurrent resistant UTI. Needs Lithotripsy!!! Urology noted. On Abd. Ct Scan has suspicious lesions in duodenum. For EGD. Subjective Allergies: Coded Allergies: PENICILLINS (Unverified Allergy, Unknown, 11/07/16) Subjective No new c/o. NPO for EGD Objective Last 24 Hour Vital Signs Date Time Temp Pulse Resp B/P Pulse Ox O2 Delivery O2 Flow Rate FiO2 11/15/16 04:00 98.2 88 20 128/75 98 Room Air 11/15/16 00:00 98.1 76 20 121/73 97 Room Air 11/14/16 20:00 98.1 71 20 139/81 97 Room Air 11/14/16 16:05 98.4 72 17 102/63 97 Room Air 11/14/16 11:58 98.2 97 17 132/69 98 Room Air 11/14/16 09:02 70 138/80 Intake and Output 11/14/16 11/15/16 19:00 07:00 Intake Total 720 ml Balance 720 ml Intake Oral 720 ml # Voids 2 3 Laboratory Tests 11/15/16 04:30: White Blood Count 3.4L, Red Blood Count 4.56L, Hemoglobin 14.2, Hematocrit 43.1 , Mean Corpuscular Volume 94, Mean Corpuscular Hemoglobin 31.1H, Mean Corpuscular Hemoglobin Concent 33.0, Red Cell Distribution Width 12.7, Platelet Count 182, Mean Platelet Volume 8.5, Neutrophils (%) (Auto) , Lymphocytes (%) ( Auto) , Monocytes (%) (Auto) , Eosinophils (%) (Auto) , Basophils (%) (Auto) , Neutrophils % (Manual) [Pending], Lymphocytes % (Manual) [Pending], Platelet Estimate [Pending], Platelet Morphology [Pending], Sodium Level 135, Potassium Level 4.2, Chloride Level 98, Carbon Dioxide Level 23, Anion Gap 14, Blood Urea Nitrogen 12, Creatinine 0.9, Estimat Glomerular Filtration Rate , Glucose Level 88, Calcium Level 9.5 Height (Feet): 5 Height (Inches): 5.00 Weight (Pounds): 183 Objective CV RR Lungs CTa Abd SNT . BS + E No CCE HOANG PETERSON 5, 2017 08:44
[2016-11-15] MEDS: Heparin 5000 units/ml inj SUBQ SCH ×2 (09:00→20:43)
--- NOTE | 2016-11-15 09:45 | Urology Progress Note ---
Assessment/Plan Assessment/Plan 1. Urinary tract infection. 2. Nephrolithiasis that is nonobstructive. 3. Benign prostatic hypertrophy history. 4. Lower urinary tract symptoms history. 5. Probable neurogenic bladder. 6. Hematuria. 7. Renal cyst. 8. Proteinuria. abx as ordered, per ID flomax and proscar monitor clinically tx of stones later Subjective Allergies: Coded Allergies: PENICILLINS (Unverified Allergy, Unknown, 11/07/16) Subjective all noted, no new changes, for EGD today Objective Last 24 Hour Vital Signs Date Time Temp Pulse Resp B/P Pulse Ox O2 Delivery O2 Flow Rate FiO2 11/15/16 08:00 97.7 69 20 132/79 96 Room Air 11/15/16 04:00 98.2 88 20 128/75 98 Room Air 11/15/16 00:00 98.1 76 20 121/73 97 Room Air 11/14/16 20:00 98.1 71 20 139/81 97 Room Air 11/14/16 16:05 98.4 72 17 102/63 97 Room Air 11/14/16 11:58 98.2 97 17 132/69 98 Room Air Intake and Output 11/14/16 11/15/16 19:00 07:00 Intake Total 720 ml Balance 720 ml Intake Oral 720 ml # Voids 2 3 Microbiology Date/Time Source Procedure Growth Status 11/07/16 12:41 Urine,Clean Catch Urine Culture - Final Enterococcus Faecalis Complete Current Medications Medications (Trade) Dose Ordered Sig/Alan Route PRN Reason Start Time Stop Time Status Last Admin Dose Admin Acetaminophen (Tylenol) 500 mg Q6H PRN ORAL Mild Pain/Temp > 100.5 11/07/16 16:30 12/07/16 16:29 11/07/16 23:17 Amlodipine Besylate (Norvasc) 10 mg DAILY ORAL 11/10/16 09:00 12/10/16 08:59 11/14/16 09:02 Escitalopram Oxalate (Lexapro) 10 mg DAILY ORAL 11/09/16 09:00 12/09/16 08:59 11/14/16 09:01 Finasteride 5 mg 5 mg DAILY ORAL 11/13/16 09:00 12/13/16 08:59 11/14/16 09:01 Heparin Sodium (Porcine) (Heparin 5000 units/ml) 5,000 units EVERY 12 HOURS SUBQ 11/07/16 21:00 12/07/16 20:59 11/14/16 21:13 Tamsulosin HCl (Flomax) 0.4 mg BEDTIME ORAL 11/12/16 22:00 12/12/16 21:59 11/14/16 21:11 Vancomycin HCl (Vanco rx to dose) 1 ea DAILY PRN MISC Per rx protocol 11/10/16 11:45 12/10/16 11:44 Vancomycin HCl/ Dextrose (Vancomycin/D5W) 325 ml @ 162.5 mls/ hr Q24H IVPB 11/13/16 14:00 11/18/16 13:59 11/14/16 15:51 Laboratory Tests 11/15/16 04:30: White Blood Count 3.4L, Red Blood Count 4.56L, Hemoglobin 14.2, Hematocrit 43.1 , Mean Corpuscular Volume 94, Mean Corpuscular Hemoglobin 31.1H, Mean Corpuscular Hemoglobin Concent 33.0, Red Cell Distribution Width 12.7, Platelet Count 182, Mean Platelet Volume 8.5, Neutrophils (%) (Auto) , Lymphocytes (%) ( Auto) , Monocytes (%) (Auto) , Eosinophils (%) (Auto) , Basophils (%) (Auto) , Neutrophils % (Manual) [Pending], Lymphocytes % (Manual) [Pending], Platelet Estimate [Pending], Platelet Morphology [Pending], Sodium Level 135, Potassium Level 4.2, Chloride Level 98, Carbon Dioxide Level 23, Anion Gap 14, Blood Urea Nitrogen 12, Creatinine 0.9, Estimat Glomerular Filtration Rate , Glucose Level 88, Calcium Level 9.5 Height (Feet): 5 Height (Inches): 5.00 Weight (Pounds): 183 Objective exam stable BALJINDER CALVILLO Nov 15, 2016 09:45
[2016-11-15 09:53] LABS: BAND NEUTROPHILS % (MANUAL) 0 % (0-8); BASOPHILS % (MANUAL) 0 % (0-2); EOSINOPHILS % (MANUAL) 4 % (0-3); LYMPHOCYTES % (MANUAL) 27 % (20-45); NEUTROPHILS % (MANUAL) 58 % (45-75); PLATELET ESTIMATE ADEQUATE; PLATELET MORPHOLOGY NORMAL; TOTAL CELLS COUNTED 100
[2016-11-15] MEDS ORDERED: Propofol 10mg/ml 20ml IV ONE (11:45)
[2016-11-15] MEDS ORDERED: ePHEDrine 50mg/ml Inj ONE (11:45)
[2016-11-15] MEDS ORDERED: LR 1000ml ONE (11:45)
[2016-11-15] MEDS ORDERED: Lidocaine 1% MPF 10mg/ml 5ml ONE (11:45)
[2016-11-15] MEDS ORDERED: NS 550ML IV ONE (11:50)
--- NOTE | 2016-11-15 12:24 | Immediate Post-Op Evaluation ---
Immediate Post-Op Evalulation Immediate Post-Op Evalulation Procedure: eus Date of Evaluation: Nov 15, 2016 Time of Evaluation: 12:20 IV Fluids: 300 Blood Pressure Systolic: 90 Blood Pressure Diastolic: 86 Pulse Rate: 74 Respiratory Rate: 14 O2 Sat by Pulse Oximetry: 96 Temperature (Fahrenheit): 97.6 Nausea: No Vomiting: No Complications none Patient Status: awake, reacts, patent Hydration Status: adequate Drug: none LIZET MILLS CRNA Nov 15, 2016 12:24
--- NOTE | 2016-11-15 12:26 | Anethesia Preoperative Eval ---
Anesthesia Pre-op PMH/ROS General Date of Evaluation: Nov 15, 2016 Time of Evaluation: 12:25 Anesthesiologist: hardy ASA Score: ASA 2 Mallampati Score Class I : Soft palate, uvula, fauces, pillars visible Class II: Soft palate, uvula, fauces visible Class III: Soft palate, base of uvula visible Class IV: Only hard plate visible Surgeon: adriano Diagnosis: mass Surgical Procedure: eus Anesthesia History: none Family History: no anesthesia problems Allergies: Coded Allergies: PENICILLINS (Unverified Allergy, Unknown, 11/07/16) Medications: see eMAR Past Medical History Cardiovascular: Denies: CAD, HTN, [place], arrhythmia, other, valve dz Pulmonary: Denies: COPD, JERRELL, asthma, other Gastrointestinal/Genitourinary: Reports: GERD, Denies: CRI, ESRD, other Neurologic/Psychiatric: Reports: dementia Endocrine: Denies: DM, hypothyroidism, other, steroids HEENT: Denies: LOWER [place] (L), LOWER [place] (R), cataract (L), cataract (R), glaucoma, other Hematology/Immune: Denies: DVT, anemia, bleeding disorder, other Musculoskeletal/Integumentary: Denies: DDD, DJD, OA, RA, edema, other PSxH Narrative: unknown Anesthesia Pre-op Phys. Exam Physician Exam Last Vital Signs Date Time Temp Pulse Resp B/P Pulse Ox O2 Delivery O2 Flow Rate FiO2 11/15/16 09:00 64 119/57 11/15/16 08:00 97.7 20 96 Room Air Constitutional: NAD Neurologic: other - demented Cardiovascular: other - 1avb Respiratory: CTA Gastrointestinal: S/NT/ND Airway Exam Mallampati Classification 2 Mallampati Score: Class II MO: full ROM: limited Dentures: no lower, no upper Anesthesia Pre-op A/P Labs Hematology Test 11/15/16 04:30 White Blood Count 3.4 K/UL (4.8-10.8) L Red Blood Count 4.56 M/UL (4.70-6.10) L Hemoglobin 14.2 G/DL (14.2-18.0) Hematocrit 43.1 % (42.0-52.0) Mean Corpuscular Volume 94 FL (80-99) Mean Corpuscular Hemoglobin 31.1 PG (27.0-31.0) H Mean Corpuscular Hemoglobin Concent 33.0 G/DL (32.0-36.0) Red Cell Distribution Width 12.7 % (11.6-14.8) Platelet Count 182 K/UL (150-450) Mean Platelet Volume 8.5 FL (6.5-10.1) Neutrophils (%) (Auto) % (45.0-75.0) Lymphocytes (%) (Auto) % (20.0-45.0) Monocytes (%) (Auto) % (1.0-10.0) Eosinophils (%) (Auto) % (0.0-3.0) Basophils (%) (Auto) % (0.0-2.0) Differential Total Cells Counted 100 Neutrophils % (Manual) 58 % (45-75) Lymphocytes % (Manual) 27 % (20-45) Monocytes % (Manual) 11 % (1-10) H Eosinophils % (Manual) 4 % (0-3) H Basophils % (Manual) 0 % (0-2) Band Neutrophils 0 % (0-8) Platelet Estimate Adequate Platelet Morphology Normal Red Blood Cell Morphology Normal Chemistry Test 11/15/16 04:30 Sodium Level 135 mEQ/L (135-145) Potassium Level 4.2 mEQ/L (3.4-4.9) Chloride Level 98 mEQ/L (98-107) Carbon Dioxide Level 23 mEQ/L (20-30) Anion Gap 14 (5-15) Blood Urea Nitrogen 12 mg/dL (7-23) Creatinine 0.9 mg/dL (0.7-1.2) Estimat Glomerular Filtration Rate mL/min (>60) Glucose Level 88 mg/dL (74-106) Calcium Level 9.5 mg/dL (8.6-10.2) Studies Pre-op Studies: EKG - 1avb Risk Assessment & Plan Plan: mac Status Change Before Surgery: No Pre-Antibiotics Drug: none LIZET MILLS CRNA Nov 15, 2016 12:26
--- NOTE | 2016-11-15 12:27 | 48 Hour Post Anesthesia Eval ---
Post Anesthesia Evaluation Procedure: eus Date of Evaluation: Nov 15, 2016 Time of Evaluation: 12:27 Blood Pressure Systolic: 114 0: 79 Pulse Rate: 71 Respiratory Rate: 14 O2 Sat by Pulse Oximetry: 100 Airway: patent Nausea: No Hydration Status: adequate Mental Status/LOC: patient returned to baseline Post-Anesthesia Complications: none Follow-up care needed: N/A LIZET MILLS CRNA Nov 15, 2016 12:27
--- NOTE | 2016-11-15 14:08 | Endoscopy Procedure Note ---
Endoscopy Procedure Note Indication for Procedure: abd mass Procedures Performed: EGD, other - eus Operative Findings/Diagnosis: same Specimen: yes Pt Tolerated Procedure Well: Yes Estimated Blood Loss: none Anesthesiologist: majo Anesthesia: MAC Implant(s) used?: No 50 yrs or older w/o bx or poly: Not Applicable 10yrs. F/U not recommended: Not Applicable SHELLIE PAREKH Nov 15, 2016 14:08
[2016-11-15] MEDS: Vancomycin 1.5 GM in D5W 325 ML IVPB SCH (15:26)
--- NOTE | 2016-11-15 16:12 | Infectious Diseases Prog Note ---
Assessment/Plan Assessment/Plan ASSESSMENT AND PLAN: 1. enterococcus uti - # 6 abx, clinically stable 2. The patient has a history of dementia. 3. Hypertension - bp treatment per primary 4. The patient has leukopenia. 5. CT scan was noted. Deferred to Dr. Miguel for further workup. 6. The patient had dizziness. Neurology followup. 7. The patient also came in with delirium and looks like psychiatry is following. 8. Poor historian. 9. Proteinuria. 10. History of colon cancer, s/p egd 11. Allergies to penicillin. 12. Social history negative. 13. Family history is noncontributory. 14. Case discussed with Dr. Miguel. 15. MAR was noted. 16. Case discussed with RN. 17. skin care per protocol 18. Continue treatment per primary consultants. Subjective Constitutional: Denies: fever HEENT: Denies: congestion Respiratory: Denies: shortness of breath Cardiovascular: Denies: chest pain Gastrointestinal/Abdominal: Denies: nausea Genitourinary: Denies: dysuria, frequency, hematuria Neurologic: Denies: headache, weakness Psychiatric: Denies: depression Skin: Denies: rash Hematologic: Denies: bleeding Musculoskeletal: Denies: pain Allergies: Coded Allergies: PENICILLINS (Unverified Allergy, Unknown, 11/07/16) Objective Vital Signs Last 24 Hour Vital Signs Date Time Temp Pulse Resp B/P Pulse Ox O2 Delivery O2 Flow Rate FiO2 11/15/16 16:01 97.3 68 18 123/78 Room Air 11/15/16 12:35 97.4 68 16 123/69 96 Room Air 11/15/16 12:27 71 14 100 11/15/16 12:25 68 15 130/78 97 Room Air 11/15/16 12:24 74 14 96 11/15/16 12:20 74 16 132/79 100 Nasal Cannula 3.0 11/15/16 12:15 97.6 81 14 114/68 100 Nasal Cannula 3.0 11/15/16 12:00 97.3 70 20 128/75 96 Room Air 11/15/16 09:00 64 119/57 11/15/16 08:00 97.7 69 20 132/79 96 Room Air 11/15/16 04:00 98.2 88 20 128/75 98 Room Air 11/15/16 00:00 98.1 76 20 121/73 97 Room Air 11/14/16 20:00 98.1 71 20 139/81 97 Room Air Height (Feet): 5 Height (Inches): 5.00 Weight (Pounds): 183 General Appearance: no acute distress HEENT: normocephalic, atraumatic, anicteric, mucous membranes moist, PERRL, EOMI, pharynx normal, supple, no JVD Respiratory/Chest: lungs clear, normal breath sounds, no respiratory distress, no accessory muscle use Cardiovascular: normal rate, regular rhythm, no gallop/murmur, no JVD Abdomen: normal bowel sounds, soft, non tender, no organomegaly, non distended Genitourinary: other Extremities: no cyanosis Skin: no rash, no ulcers 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 There is age-related cerebral volume loss and chronic deep white matter ischemic change. CT abdomen and pelvis: Impression: Multiple sequences demonstrate possible 3 cm mass protruding into the duodenal lumen. This could just represent extrinsic impression by a prominent pancreatic head. However, if real, this could represent an intrinsic duodenal mucosal tumor versus an extrinsic pancreatic head mass. Consider endoscopy for further evaluation if clinically indicated. Note that at the periphery of this apparent lesion, there is a 9 mm lipoma protruding into the duodenal lumen. 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 That finding was either artifactual or represented a normal anatomic structure Trace left perinephric fluid, nonspecific Subcentimeter low-attenuation left renal lesions, too small to characterize, most likely benign simple cortical cysts. No further followup necessary Large duodenal diverticulum incidentally noted Subcentimeter segment 8 liver low-attenuation lesion, distal to characterize, most likely benign simple cortical cyst or bile hamartomas. No further followup necessary Colonic diverticulosis Other findings as noted, including evidence of prior TURP, evidence of prior ascending colectomy, mild bilateral basilar pulmonary parenchymal scarring, minimal bronchiectasis, old splenic granulomatous disease, probable small accessory splenule and mild degenerative spondylosis changes. Microbiology Date/Time Source Procedure Growth Status 11/07/16 12:41 Urine,Clean Catch Urine Culture - Final Enterococcus Faecalis Complete Laboratory Tests Test 11/15/16 04:30 White Blood Count 3.4 K/UL (4.8-10.8) L Red Blood Count 4.56 M/UL (4.70-6.10) L Hemoglobin 14.2 G/DL (14.2-18.0) Hematocrit 43.1 % (42.0-52.0) Mean Corpuscular Volume 94 FL (80-99) Mean Corpuscular Hemoglobin 31.1 PG (27.0-31.0) H Mean Corpuscular Hemoglobin Concent 33.0 G/DL (32.0-36.0) Red Cell Distribution Width 12.7 % (11.6-14.8) Platelet Count 182 K/UL (150-450) Mean Platelet Volume 8.5 FL (6.5-10.1) Neutrophils (%) (Auto) % (45.0-75.0) Lymphocytes (%) (Auto) % (20.0-45.0) Monocytes (%) (Auto) % (1.0-10.0) Eosinophils (%) (Auto) % (0.0-3.0) Basophils (%) (Auto) % (0.0-2.0) Differential Total Cells Counted 100 Neutrophils % (Manual) 58 % (45-75) Lymphocytes % (Manual) 27 % (20-45) Monocytes % (Manual) 11 % (1-10) H Eosinophils % (Manual) 4 % (0-3) H Basophils % (Manual) 0 % (0-2) Band Neutrophils 0 % (0-8) Platelet Estimate Adequate Platelet Morphology Normal Red Blood Cell Morphology Normal Sodium Level 135 mEQ/L (135-145) Potassium Level 4.2 mEQ/L (3.4-4.9) Chloride Level 98 mEQ/L (98-107) Carbon Dioxide Level 23 mEQ/L (20-30) Anion Gap 14 (5-15) Blood Urea Nitrogen 12 mg/dL (7-23) Creatinine 0.9 mg/dL (0.7-1.2) Estimat Glomerular Filtration Rate mL/min (>60) Glucose Level 88 mg/dL (74-106) Calcium Level 9.5 mg/dL (8.6-10.2) Current Medications Medications (Trade) Dose Ordered Sig/Alan Route PRN Reason Start Time Stop Time Status Last Admin Dose Admin Acetaminophen (Tylenol) 500 mg Q6H PRN ORAL Mild Pain/Temp > 100.5 11/07/16 16:30 12/07/16 16:29 11/07/16 23:17 Amlodipine Besylate (Norvasc) 10 mg DAILY ORAL 11/10/16 09:00 12/10/16 08:59 11/14/16 09:02 Escitalopram Oxalate (Lexapro) 10 mg DAILY ORAL 11/09/16 09:00 12/09/16 08:59 11/14/16 09:01 Finasteride 5 mg 5 mg DAILY ORAL 11/13/16 09:00 12/13/16 08:59 11/15/16 10:41 Heparin Sodium (Porcine) (Heparin 5000 units/ml) 5,000 units EVERY 12 HOURS SUBQ 11/07/16 21:00 12/07/16 20:59 11/14/16 21:13 Tamsulosin HCl (Flomax) 0.4 mg BEDTIME ORAL 11/12/16 22:00 12/12/16 21:59 11/14/16 21:11 Vancomycin HCl (Vanco rx to dose) 1 ea DAILY PRN MISC Per rx protocol 11/10/16 11:45 12/10/16 11:44 Vancomycin HCl/ Dextrose (Vancomycin/D5W) 325 ml @ 162.5 mls/ hr Q24H IVPB 11/13/16 14:00 11/18/16 13:59 11/15/16 15:26 DOLLY ADAM Nov 15, 2016 16:12
[2016-11-15] MEDS: Tamsulosin 0.4mg cap ORAL SCH (20:42)
[2016-11-16 04:11] VITALS: BP 135/70
[2016-11-16 06:34] LABS: ANION GAP 12 (5-15); CALCIUM 9.4 mg/dL (8.6-10.2); CARBON DIOXIDE 25 mEQ/L (20-30); CHLORIDE 98 mEQ/L (98-107); CREATININE 0.9 mg/dL (0.7-1.2); HEMOLYSIS 3; POTASSIUM 4.1 mEQ/L (3.4-4.9); SODIUM 135 mEQ/L (135-145)
[2016-11-16 06:38] LABS: BASOPHILS % (AUTO) 1.6 % (0.0-2.0); EOSINOPHILS % (AUTO) 3.4 % (0.0-3.0); LYMPHOCYTES % (AUTO) 24.1 % (20.0-45.0); MEAN CORPUSCULAR HEMOGLOBIN 31.6 PG (27.0-31.0); MEAN CORPUSCULAR HGB CONC 33.6 G/DL (32.0-36.0); MEAN CORPUSCULAR VOLUME 94 FL (80-99); MONOCYTES % (AUTO) 11.4 % (1.0-10.0); NEUTROPHILS % (AUTO) 59.5 % (45.0-75.0); PLATELET COUNT 180 K/UL (150-450); RED BLOOD COUNT 4.22 M/UL (4.70-6.10); RED CELL DISTRIBUTION WIDTH 12.9 % (11.6-14.8); WHITE BLOOD COUNT 3.8 K/UL (4.8-10.8)
[2016-11-16 08:00] VITALS: BP 150/74
[2016-11-16] MEDS: Heparin 5000 units/ml inj SUBQ SCH (09:29)
--- NOTE | 2016-11-16 10:33 | Urology Progress Note ---
Assessment/Plan Assessment/Plan 1. Urinary tract infection. 2. Nephrolithiasis that is nonobstructive. 3. Benign prostatic hypertrophy history. 4. Lower urinary tract symptoms history. 5. Probable neurogenic bladder. 6. Hematuria. 7. Renal cyst. 8. Proteinuria. abx as ordered, per ID flomax and proscar monitor clinically d/w Dr.'s Wright and Lamont ge of stones later Subjective Allergies: Coded Allergies: PENICILLINS (Unverified Allergy, Unknown, 11/07/16) Subjective all noted, no new changes Objective Last 24 Hour Vital Signs Date Time Temp Pulse Resp B/P Pulse Ox O2 Delivery O2 Flow Rate FiO2 11/16/16 09:25 71 150/74 11/16/16 08:00 97.6 71 17 150/74 95 Room Air 11/16/16 04:11 97.0 70 21 135/70 96 Room Air 11/15/16 23:58 97.5 74 21 140/80 96 Room Air 11/15/16 19:40 98.1 67 21 121/70 95 Room Air 11/15/16 16:01 97.3 68 18 123/78 Room Air 11/15/16 12:35 97.4 68 16 123/69 96 Room Air 11/15/16 12:27 71 14 100 11/15/16 12:25 68 15 130/78 97 Room Air 11/15/16 12:24 74 14 96 11/15/16 12:20 74 16 132/79 100 Nasal Cannula 3.0 11/15/16 12:15 97.6 81 14 114/68 100 Nasal Cannula 3.0 11/15/16 12:00 97.3 70 20 128/75 96 Room Air Intake and Output 11/15/16 11/16/16 19:00 07:00 Intake Total 370 ml Output Total 0 ml Balance 370 ml Intake Oral 120 ml IV Total 250 ml Estimated Blood Loss 0 ml # Voids 3 Microbiology Date/Time Source Procedure Growth Status 11/07/16 12:41 Urine,Clean Catch Urine Culture - Final Enterococcus Faecalis Complete Current Medications Medications (Trade) Dose Ordered Sig/Alan Route PRN Reason Start Time Stop Time Status Last Admin Dose Admin Acetaminophen (Tylenol) 500 mg Q6H PRN ORAL Mild Pain/Temp > 100.5 11/07/16 16:30 12/07/16 16:29 11/07/16 23:17 Amlodipine Besylate (Norvasc) 10 mg DAILY ORAL 11/10/16 09:00 12/10/16 08:59 11/16/16 09:25 Escitalopram Oxalate (Lexapro) 10 mg DAILY ORAL 11/09/16 09:00 12/09/16 08:59 11/16/16 09:25 Finasteride 5 mg 5 mg DAILY ORAL 11/13/16 09:00 12/13/16 08:59 11/16/16 09:24 Heparin Sodium (Porcine) (Heparin 5000 units/ml) 5,000 units EVERY 12 HOURS SUBQ 11/07/16 21:00 12/07/16 20:59 11/16/16 09:29 Tamsulosin HCl (Flomax) 0.4 mg BEDTIME ORAL 11/12/16 22:00 12/12/16 21:59 11/15/16 20:42 Vancomycin HCl (Vanco rx to dose) 1 ea DAILY PRN MISC Per rx protocol 11/10/16 11:45 12/10/16 11:44 Vancomycin HCl/ Dextrose (Vancomycin/D5W) 325 ml @ 162.5 mls/ hr Q24H IVPB 11/13/16 14:00 11/18/16 13:59 11/15/16 15:26 Laboratory Tests 11/16/16 05:15: White Blood Count 3.8L, Red Blood Count 4.22L, Hemoglobin 13.4L, Hematocrit 39.7L, Mean Corpuscular Volume 94, Mean Corpuscular Hemoglobin 31.6H, Mean Corpuscular Hemoglobin Concent 33.6, Red Cell Distribution Width 12.9, Platelet Count 180, Mean Platelet Volume 9.0, Neutrophils (%) (Auto) 59.5, Lymphocytes (% ) (Auto) 24.1, Monocytes (%) (Auto) 11.4H, Eosinophils (%) (Auto) 3.4H, Basophils (%) (Auto) 1.6, Sodium Level 135, Potassium Level 4.1, Chloride Level 98, Carbon Dioxide Level 25, Anion Gap 12, Blood Urea Nitrogen 12, Creatinine 0.9, Estimat Glomerular Filtration Rate , Glucose Level 90, Calcium Level 9.4, Lactate Dehydrogenase [Pending] Height (Feet): 5 Height (Inches): 5.00 Weight (Pounds): 183 Objective exam stable BAMSHAD,BALJINDER Nov 16, 2016 10:33
[2016-11-16] MEDS ORDERED: NS 275ml ONE (11:04)
[2016-11-16] MEDS ORDERED: Tubing IV Secondary IV ONE (11:04)
--- NOTE | 2016-11-16 11:12 | General Progress Note ---
Assessment/Plan Assessment/Plan U c+s Enterococci On IV Abx per ID. Abd CT B Staghorn Calculi causing recurrent resistant UTI. Needs Lithotripsy!!! Urology noted. REX Saul. For Cysto + Lithotripsy as an outpatient. On Abd. Ct Scan has suspicious lesions in duodenum. Had EGD yesterday. Results not in the chart. To REX Wright. DC to [facility]. Subjective Allergies: Coded Allergies: PENICILLINS (Unverified Allergy, Unknown, 11/07/16) Subjective No new c/o. NPO for EGD Objective Last 24 Hour Vital Signs Date Time Temp Pulse Resp B/P Pulse Ox O2 Delivery O2 Flow Rate FiO2 11/16/16 09:25 71 150/74 11/16/16 08:00 97.6 71 17 150/74 95 Room Air 11/16/16 04:11 97.0 70 21 135/70 96 Room Air 11/15/16 23:58 97.5 74 21 140/80 96 Room Air 11/15/16 19:40 98.1 67 21 121/70 95 Room Air 11/15/16 16:01 97.3 68 18 123/78 Room Air 11/15/16 12:35 97.4 68 16 123/69 96 Room Air 11/15/16 12:27 71 14 100 11/15/16 12:25 68 15 130/78 97 Room Air 11/15/16 12:24 74 14 96 11/15/16 12:20 74 16 132/79 100 Nasal Cannula 3.0 11/15/16 12:15 97.6 81 14 114/68 100 Nasal Cannula 3.0 11/15/16 12:00 97.3 70 20 128/75 96 Room Air Intake and Output 11/15/16 11/16/16 19:00 07:00 Intake Total 370 ml Output Total 0 ml Balance 370 ml Intake Oral 120 ml IV Total 250 ml Estimated Blood Loss 0 ml # Voids 3 Laboratory Tests 11/16/16 05:15: White Blood Count 3.8L, Red Blood Count 4.22L, Hemoglobin 13.4L, Hematocrit 39.7L, Mean Corpuscular Volume 94, Mean Corpuscular Hemoglobin 31.6H, Mean Corpuscular Hemoglobin Concent 33.6, Red Cell Distribution Width 12.9, Platelet Count 180, Mean Platelet Volume 9.0, Neutrophils (%) (Auto) 59.5, Lymphocytes (% ) (Auto) 24.1, Monocytes (%) (Auto) 11.4H, Eosinophils (%) (Auto) 3.4H, Basophils (%) (Auto) 1.6, Sodium Level 135, Potassium Level 4.1, Chloride Level 98, Carbon Dioxide Level 25, Anion Gap 12, Blood Urea Nitrogen 12, Creatinine 0.9, Estimat Glomerular Filtration Rate , Glucose Level 90, Calcium Level 9.4, Lactate Dehydrogenase [Pending] Height (Feet): 5 Height (Inches): 5.00 Weight (Pounds): 183 Objective CV RR Lungs CTa Abd SNT . BS + E No MENGE HOANG PETERSON Nov 16, 2016 11:12
[2016-11-16] MEDS ORDERED: Vanco pharmacy to dose MISC (11:16)
[2016-11-16] MEDS ORDERED: NORVASC10 MG ORAL (11:16)
[2016-11-16] MEDS ORDERED: FINASTERIDE5 MG ORAL (11:16)
[2016-11-16] MEDS ORDERED: FLOMAX0.4 MG ORAL (11:16)
[2016-11-16] MEDS ORDERED: LEXAPRO10 MG ORAL (11:16)
[2016-11-16] MEDS ORDERED: HEPARIN SO5000 UNIT2 SUBQ (11:16)
[2016-11-16] MEDS: Vancomycin 1.5 GM in D5W 325 ML IVPB SCH (11:41)
[2016-11-16 12:00] VITALS: BP 130/70
--- NOTE | 2016-11-16 14:17 | GI Progress Note ---
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 Wright. Assessment/Plan Endoscopy Procedure Note Indication for Procedure: abd mass Procedures Performed: EGD, other - eus SHELLIE WRIGHT - Nov 15, 2016 14:08 ok for DC per GI standpoint, needs follow up as outpatient to schedule EUS-FNA fu biopsy of duodenal mass normal CEA and ca 19-9 Subjective Gastrointestinal/Abdominal: Reports: no symptoms Objective Last 24 Hour Vital Signs Date Time Temp Pulse Resp B/P Pulse Ox O2 Delivery O2 Flow Rate FiO2 11/16/16 09:25 71 150/74 11/16/16 08:00 97.6 71 17 150/74 95 Room Air 11/16/16 04:11 97.0 70 21 135/70 96 Room Air 11/15/16 23:58 97.5 74 21 140/80 96 Room Air 11/15/16 19:40 98.1 67 21 121/70 95 Room Air 11/15/16 16:01 97.3 68 18 123/78 Room Air Intake and Output 11/15/16 11/16/16 19:00 07:00 Intake Total 370 ml Output Total 0 ml Balance 370 ml Intake Oral 120 ml IV Total 250 ml Estimated Blood Loss 0 ml # Voids 3 Laboratory Tests Test 11/16/16 05:15 White Blood Count 3.8 K/UL (4.8-10.8) L Red Blood Count 4.22 M/UL (4.70-6.10) L Hemoglobin 13.4 G/DL (14.2-18.0) L Hematocrit 39.7 % (42.0-52.0) L Mean Corpuscular Volume 94 FL (80-99) Mean Corpuscular Hemoglobin 31.6 PG (27.0-31.0) H Mean Corpuscular Hemoglobin Concent 33.6 G/DL (32.0-36.0) Red Cell Distribution Width 12.9 % (11.6-14.8) Platelet Count 180 K/UL (150-450) Mean Platelet Volume 9.0 FL (6.5-10.1) Neutrophils (%) (Auto) 59.5 % (45.0-75.0) Lymphocytes (%) (Auto) 24.1 % (20.0-45.0) Monocytes (%) (Auto) 11.4 % (1.0-10.0) H Eosinophils (%) (Auto) 3.4 % (0.0-3.0) H Basophils (%) (Auto) 1.6 % (0.0-2.0) Sodium Level 135 mEQ/L (135-145) Potassium Level 4.1 mEQ/L (3.4-4.9) Chloride Level 98 mEQ/L (98-107) Carbon Dioxide Level 25 mEQ/L (20-30) Anion Gap 12 (5-15) Blood Urea Nitrogen 12 mg/dL (7-23) Creatinine 0.9 mg/dL (0.7-1.2) Estimat Glomerular Filtration Rate mL/min (>60) Glucose Level 90 mg/dL (74-106) Calcium Level 9.4 mg/dL (8.6-10.2) Lactate Dehydrogenase Pending Height (Feet): 5 Height (Inches): 5.00 Weight (Pounds): 183 General Appearance: no apparent distress, alert Cardiovascular: normal rate Respiratory/Chest: normal breath sounds, no respiratory distress Abdominal Exam: soft Jen Reddy N.P. Nov 16, 2016 14:17
[2016-11-17 06:36] LABS: LACTATE DEHYDROGENASE 121 U/L (135-225)
--- NOTE | 2016-11-17 19:57 | Discharge Summary ---
Discharge Summary Hospital Course Date of Admission November 07, 2016 at 13:40 Date of Discharge Nov 16, 2016 at 14:30 Admitting Diagnosis Generalized weakness, UTI HPI Barney Ramos is a 85 year old male who was admitted on November 07, 2016 at 13:40 for Generalized Weakness,Uti Hospital Course [id number] Discharge Discharge Disposition Patient was discharged to SNF/Subacute Facility(03) Discharge Diagnoses: Renita Paz NP Nov 17, 2016 19:57
--- NOTE | 2016-11-18 02:45 | Discharge Summary 2 SIG ---
DATE OF ADMISSION: 11/07/2016 DATE OF DISCHARGE: 11/16/2016 CONSULTANTS: 1. Eric Saul M.D. 2. Mian Maddox M.D. 3. Marquis Hernandez M.D. 4. Benjamin Coffman M.D. 5. Evelio Wright M.D. BRIEF HOSPITAL COURSE: The patient is an 85-year-old male, who lives with his grandson in an apartment. He was brought in by the paramedics after complaints of dizziness. On arrival to ED, laboratories showed elevated potassium level. EKG was in sinus rhythm at a rate of 71 and urinalysis showed evidence of urinary tract infection. Dr. Coffman was consulted to evaluate dizziness. The patient also complained of tinnitus, and hearing loss accompanied with episodes of vertigo. He was given meclizine and aspirin. MRI of the face and neck showed no significant abnormality of the internal auditory canals or inner ear. There was evidence of age-related cerebral volume loss and chronic deep white matter ischemic changes. He was also seen by Dr. Hernandez and was diagnosed to have dementia and major depressive disorder and was started on Lexapro [address] Maddox was consulted. Urine culture grew out Enterococcus sensitive to vancomycin. The patient is allergic to penicillin. Abdominal CT was done and showed a possible mass protruding into the duodenal lumen. There was bilateral nonobstructive small intrarenal staghorn calculi and no evidence of GI tract or urinary tract fistula to explain clinical history of recurrent VRE infection. He underwent EGD on 11/15/[address] Wright. CEA and CA-19-9 was normal. The patient was advised need for outpatient EUS/FNA. Dr. Saul was consulted for evaluation of nephrolithiasis. The patient has a history of BPH and is being followed by urologist at [facility]. He had a previous prostate surgery and was given Flomax 0.4 mg and finasteride 5 mg. The patient would need lithotripsy and was recommended to have cystoscopy with lithotripsy as an outpatient. He was eventually discharged to SNF. FINAL DIAGNOSES: 1. Enterococcus urinary tract infection. 2. 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 3. Suspicious lesion in the duodenum. 4. Benign prostatic hypertrophy. 5. Chronic labyrinthitis with recurrent vertigo. 6. Tinnitus, hearing loss. 7. Senile dementia. 8. History of colon and prostate carcinoma. 9. Benign hypertension. Carolyn Miguel M.D. I have been assigned to dictate discharge summary on this account and I was not involved in the patient's management. Renita Pza N.P. DR: David JOB#: [id number] CC: MARINA
== END 2016-11-16 14:30 | DRG 690 ==
LOC: EDBD 11:26 → EMR 11:41 → 4E 13:40 → EDBEDREQ 14:06 → 4E 11-11 02:46
PROC: 0DB68ZX Excision of Stomach, Via Natural or Artificial Opening Endoscopic, Diagnostic (ICD-10-PCS; principal; 2016-11-15 11:48)
PROC: 0DB98ZX Excision of Duodenum, Via Natural or Artificial Opening Endoscopic, Diagnostic (ICD-10-PCS; principal; 2016-11-15 11:48)
DX: N39.0 Urinary tract infection, site not specified (principal); F03.90 Unspecified dementia, unspecified severity, without behavioral disturbance, psychotic disturbance, mood disturbance, and anxiety; F05 Delirium due to known physiological condition; N20.0 Calculus of kidney; I10 Essential (primary) hypertension; B95.2 Enterococcus as the cause of diseases classified elsewhere; H83.09 Labyrinthitis, unspecified ear; Z85.038 Personal history of other malignant neoplasm of large intestine; Z85.46 Personal history of malignant neoplasm of prostate; F32.9 Major depressive disorder, single episode, unspecified; N31.8 Other neuromuscular dysfunction of bladder; Z88.0 Allergy status to penicillin; H93.19 Tinnitus, unspecified ear; H91.90 Unspecified hearing loss, unspecified ear; N28.1 Cyst of kidney, acquired; K31.89 Other diseases of stomach and duodenum; K57.90 Diverticulosis of intestine, part unspecified, without perforation or abscess without bleeding
CPT/HCPCS: 36415; 70543; 74177; 76775; 80048; 80053; 80202; 81001; 82378; 82962; 83615; 83735; 84153; 84484; 85007; 85025; 85610; 85730; 86301; 87086; 87181; 93005; 93970; 94003; 94150; A9585